=== PATIENT | female | born 1975 | race Caucasian/White ===

== ENCOUNTER → 2017-09-21 09:44 | Outpatient (POV) | payer MEDICAID, SELFPAY ==
[2017-09-21 09:55] VITALS: BP 151/93; PULSE 71; RESP 18; O2SAT 99
--- NOTE | 2017-09-21 10:43 | HMH.PMCON ---
Assessment and Plan (1) Complex regional pain syndrome Current visit: Yes Status: Chronic Qualifiers: Complex regional pain syndrome type: type I Complex regional pain syndrome affected site: other site Qualified Code(s): G90.59 - Complex regional pain syndrome I of other specified site Category: Medical (2) Nerve pain Current visit: Yes Status: Chronic Category: Medical Code(s): M79.2 - Neuralgia and neuritis, unspecified - Assessment and plan all Dx Assessment and Plan for all problems:: We will see the patient back in a few weeks. We will start her on Lyrica 75 mg daily. We will see if this is beneficial for her. If it is not we may have to move forward with some nerve blocks. Patient was educated on the potential side effects of this medication. Patient's been instructed to call the office if she has any issues. This note was dictated using voice recognition software and may contain errors or omissions HPI - Data of Consult Consult date: 09/21/17 Requesting Physician: Mariana Stallworth APRN Primary Care Provider: Hien Mace APRN Family Provider: Dr. Juárez - Consult Narrative Reason for consult: Left breast pain History of present illness: Ms. Francisco is a 41 year old female since today for consultation in regards to her left breast pain. Patient had continual cysts removed from her breast a year ago. Patient has burning and tingling in this area. Patient has had not had any relief from this since then. Patient states aching constant burning pain. She rates the pain a 5 out of 10. Patient's tried and failed amitriptyline, gabapentin, narcotics, Cymbalta. Patient has not tried Lyrica. I do believe that this may be beneficial for her. Patient may also benefit from nerve blocks in the future. CC: Mariana Stallworth APRN [facility] History I have reviewed the patient's past medical history: Yes Laterality Cases: Left: Breast Biopsy - *Social History Smoking Status: Current every day smoker Tobacco Type: cigarettes # Packs/Day (cigarettes): 1 Alcohol Intake: never Occupational Status: employed, other Housing: house - Psychiatric History Expresses thoughts of harming self/others: None Suicide Plan Description: No Plan *Family Hx:: Unable to obtain Review of Systems - Review of Systems ROS General: no recent weight change, no fever, no sleep disturbances Respiratory: no cough, no shortness of air, no recurring pulmonary infections Cardiovascular/Peripheral Vascular: No chest pain, No palpitations, no edema, no shortness of breath. Gastrointestinal: no incontinence, normal bowel movements reported Genitourinary: no incontinence Musculoskeletal: Left breast pain Psychiatric: normal mood/ affect Neurological: [denies weakness in extremities], [denies balance issues] Meds Allergies Allergy/AdvReac Type Severity Reaction Status Date / Time MORPHINE Allergy Mild NA-NAUSEA/V Uncoded 02/10/17 14:30 OMITING Objective Vital signs: Pulse Resp BP Pulse Ox 71 18 151/93 99 09/21/17 09:55 09/21/17 09:55 09/21/17 09:55 09/21/17 09:55 Narrative: Physical Exam General: Alert and oriented x3, no acute distress, pleasant and cooperative, [on room air] Lungs: Resps E/U, Symmetrical chest expansion, Eyes: PERRL Musculoskeletal: deep tendon reflexes normal, strength in upper and lower extremities [5/5], normal gait noted Neurological: speech clear, 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
--- NOTE | 2017-09-21 10:46 | P.CONS_ITS ---
Assessment and Plan (1) Complex regional pain syndrome Current visit: Yes Status: Chronic Qualifiers: Complex regional pain syndrome type: type I Complex regional pain syndrome affected site: other site Qualified Code(s): G90.59 - Complex regional pain syndrome I of other specified site Category: Medical (2) Nerve pain Current visit: Yes Status: Chronic Category: Medical Code(s): M79.2 - Neuralgia and neuritis, unspecified - Assessment and plan all Dx Assessment and Plan for all problems:: We will see the patient back in a few weeks. We will start her on Lyrica 75 mg daily. We will see if this is beneficial for her. If it is not we may have to move forward with some nerve blocks. Patient was educated on the potential side effects of this medication. Patient's been instructed to call the office if she has any issues. This note was dictated using voice recognition software and may contain errors or omissions HPI - Data of Consult Consult date: 09/21/17 Requesting Physician: Mariana Stallworth APRN Primary Care Provider: Hien Mace APRN Family Provider: Dr. Juárez - Consult Narrative Reason for consult: Left breast pain History of present illness: Ms. Francisco is a 41 year old female since today for consultation in regards to her left breast pain. Patient had continual cysts removed from her breast a year ago. Patient has burning and tingling in this area. Patient has had not had any relief from this since then. Patient states aching constant burning pain. She rates the pain a 5 out of 10. Patient's tried and failed amitriptyline, gabapentin, narcotics, Cymbalta. Patient has not tried Lyrica. I do believe that this may be beneficial for her. Patient may also benefit from nerve blocks in the future. CC: Mariana Stallworth APRN [facility] History I have reviewed the patient's past medical history: Yes Laterality Cases: Left: Breast Biopsy - *Social History Smoking Status: Current every day smoker Tobacco Type: cigarettes # Packs/Day (cigarettes): 1 Alcohol Intake: never Occupational Status: employed, other Housing: house - Psychiatric History Expresses thoughts of harming self/others: None Suicide Plan Description: No Plan *Family Hx:: Unable to obtain Review of Systems - Review of Systems ROS General: no recent weight change, no fever, no sleep disturbances Respiratory: no cough, no shortness of air, no recurring pulmonary infections Cardiovascular/Peripheral Vascular: No chest pain, No palpitations, no edema, no shortness of breath. Gastrointestinal: no incontinence, normal bowel movements reported Genitourinary: no incontinence Musculoskeletal: Left breast pain Psychiatric: normal mood/ affect Neurological: [denies weakness in extremities], [denies balance issues] Meds Allergies Allergy/AdvReac Type Severity Reaction Status Date / Time MORPHINE Allergy Mild NA-NAUSEA/V Uncoded 02/10/17 14:30 OMITING Objective Vital signs: Pulse Resp BP Pulse Ox 71 18 151/93 99 09/21/17 09:55 09/21/17 09:55 09/21/17 09:55 09/21/17 09:55 Narrative: Physical Exam General: Alert and oriented x3, no acute distress, pleasant and cooperative, [ on room air] Lungs: Resps E/U, Symmetrical chest expansion, Eyes: PERRL Musculoskeletal: deep tendon reflexes normal, strength in upper and lo
== END ==
PROVIDERS: PCP Nurse Practitioner Family; Visit Provider Clinical Nurse Specialist Family Health
DX: G90.59 Complex regional pain syndrome I of other specified site (principal); M79.2 Neuralgia and neuritis, unspecified
CPT/HCPCS: 99202

== ENCOUNTER → 2017-10-12 08:51 | Outpatient (POV) | payer MEDICAID, SELFPAY ==
[2017-10-12 09:13] VITALS: BP 146/87; PULSE 63; RESP 18; O2SAT 98; BMI 37.5
--- NOTE | 2017-10-12 10:05 | HMH.PAINSOAP ---
[facility] Pain Management SOAP Note Subjective:: Patient is a pleasant 41-year-old white female who presents today for follow-up. Patient left breast pain status post cyst removal. Patient still has constant burning and tingling. Patient tried Lyrica and had side effects that include swelling coughing and gaining weight. Patient and I talked about peripheral nerve blocks we may move forward with this. Patient has not tried any compounding gel. Patient rates her pain a 4 out of 10 today. She states it is constant. ROS General: no recent weight change, no fever, no sleep disturbances Respiratory: no cough, no shortness of air, no recurring pulmonary infections Cardiovascular/Peripheral Vascular: No chest pain, No palpitations, no edema, no shortness of breath. 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 If this does not work we will discuss potentially doing a compounding cream. This note was dictated using voice recognition software and may contain errors or omissions
--- NOTE | 2017-10-12 10:08 | P.CONS_ITS ---
[facility] Pain Management SOAP Note Subjective:: Patient is a pleasant 41-year-old white female who presents today for follow- up. Patient left breast pain status post cyst removal. Patient still has constant burning and tingling. Patient tried Lyrica and had side effects that include swelling coughing and gaining weight. Patient and I talked about peripheral nerve blocks we may move forward with this. Patient has not tried any compounding gel. Patient rates her pain a 4 out of 10 today. She states it is constant. ROS General: no recent weight change, no fever, no sleep disturbances Respiratory: no cough, no shortness of air, no recurring pulmonary infections Cardiovascular/Peripheral Vascular: No chest pain, No palpitations, no edema, no shortness of breath. 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 If this does not work we will discuss potentially doing a compounding cream. This note was dictated using voice recognition software and may contain errors or omissions
== END ==
PROVIDERS: Visit Provider Clinical Nurse Specialist Family Health
DX: N64.4 Mastodynia (principal)
CPT/HCPCS: 99213

== ENCOUNTER → 2017-11-16 10:30 | Outpatient (CLI) | payer MEDICAID, SELFPAY ==
[2017-11-16 11:13] LABS: Basophils # 0.1 K/mm3 (0-0.2); Basophils % 0.6 % (0.1-2.0); Eosinophils # 0.2 K/mm3 (0.0-0.4); Hematocrit 41.2 % (37.0-47.0); Lymphocytes # 2.4 K/mm3 (0.7-4.5); Lymphocytes % 24.4 K/mm3 (10-50); Mean Corpuscular HGB Conc 31.6 g/dL (31.8-35.4); Mean Corpuscular Hemoglobin 27.1 pg (27.0-31.2); Mean Corpuscular Volume 85.7 fl (81-99); Mean Platelet Volume 8.4 fl (7.4-10.4); Monocytes # 0.5 K/mm3 (0.1-1.0); Monocytes % 4.6 % (1.7-9.3); Neutrophils # 6.9 K/mm3 (1.8-7.8); Neutrophils % 68.5 % (37.0-80.0); Platelet Count 310 K/mm3 (142-424); Red Blood Count 4.81 M/mm3 (4.20-5.40); Red Cell Distribution Width 15.1 % (11.5-17.5)
[2017-11-16 13:20] LABS: Thyroid Stimulating Hormone 2.13 uIU/ml (0.358-3.740)
== END ==
PROVIDERS: PCP Nurse Practitioner Family; Visit Provider Obstetrics & Gynecology
DX: N93.8 Other specified abnormal uterine and vaginal bleeding (principal)
CPT/HCPCS: 36415; 84443; 85025

== ENCOUNTER → 2017-11-23 14:43 | Outpatient (CLI) | payer MEDICAID, SELFPAY ==
--- NOTE | 2017-11-23 14:45 | US_ITS ---
US transvaginal HISTORY: Dysfunctional uterine bleeding, heavy periods, pelvic pain ITS.REASON: DUB ORDERING PHYSICIAN: Rashard Thompson MD PATIENT AGE: 41 years Comparison: None Last menstrual period: 11/04/2017 FINDINGS: The uterus is 11.5 x 5 x 6.4 cm with a combined endometrial thickness of 17 mm. There is heterogeneous echogenicity of the endometrium with ill-defined decreased echogenicity anteriorly and decreased echogenicity posteriorly. The left ovary is 3.2 x 2.4 cm. There is a 2.3 cm cyst. The right ovary is 2.9 x 1.7 cm. No cul-de-sac fluid evident. IMPRESSION: Enlarged uterus with heterogeneously thickened endometrium at 17 mm. Differential diagnosis would include endometrial hyperplasia, polyps, or endometrial carcinoma
== END ==
PROVIDERS: PCP Family Medicine; Visit Provider Obstetrics & Gynecology
DX: N93.8 Other specified abnormal uterine and vaginal bleeding (principal)
CPT/HCPCS: 76830

== ENCOUNTER → 2017-12-07 15:08 | Outpatient (POV) | payer MEDICAID, SELFPAY ==
[2017-12-07 15:52] VITALS: BP 120/81; PULSE 74; RESP 18; O2SAT 98; BMI 40.2
--- NOTE | 2017-12-08 08:15 | HMH.PAINSOAP ---
[facility] Pain Management SOAP Note Subjective:: Date of service 12/07/2017 Patient is a pleasant 42-year-old white female who presents today for after injections to help with pain secondary to cyst removal. Patient has tried and failed Lyrica along with gabapentin. Patient rates her pain a 7 out of 10 today. Patient had these cysts removed from her left breast. Patient has swelling, color changes in this area. Patient states that it is constant with burning and tingling. Patient is finding it difficult to work. Patient did not have any relief from the injections. Patient and I had a long discussion about neuro stimulation. ROS General: no recent weight change, no fever, no sleep disturbances Respiratory: no cough, no shortness of air, no recurring pulmonary infections Cardiovascular/Peripheral Vascular: No chest pain, No palpitations, no edema, no shortness of breath. 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 I believe that this would be beneficial for her and give her long-term functionality. Patient's tried and failed medications, anti-inflammatories. Patient is remaining active. We will see her psychological evaluation and I will follow-up with her after this. This note was dictated using voice recognition software and may contain errors or omissions
--- NOTE | 2017-12-08 08:19 | P.CONS_ITS ---
[facility] Pain Management SOAP Note Subjective:: Date of service 12/07/2017 Patient is a pleasant 42-year-old white female who presents today for after injections to help with pain secondary to cyst removal. Patient has tried and failed Lyrica along with gabapentin. Patient rates her pain a 7 out of 10 today. Patient had these cysts removed from her left breast. Patient has swelling, color changes in this area. Patient states that it is constant with burning and tingling. Patient is finding it difficult to work. Patient did not have any relief from the injections. Patient and I had a long discussion about neuro stimulation. ROS General: no recent weight change, no fever, no sleep disturbances Respiratory: no cough, no shortness of air, no recurring pulmonary infections Cardiovascular/Peripheral Vascular: No chest pain, No palpitations, no edema, no shortness of breath. 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 I believe that this would be beneficial for her and give her long-term functionality. Patient's tried and failed medications, anti-inflammatories. Patient is remaining active. We will see her psychological evaluation and I will follow-up with her after this. This note was dictated using voice recognition software and may contain errors or omissions
== END ==
PROVIDERS: PCP Family Medicine; Visit Provider Clinical Nurse Specialist Family Health
DX: N64.4 Mastodynia (principal); G90.50 Complex regional pain syndrome I, unspecified
CPT/HCPCS: 99213

== ENCOUNTER → 2018-01-01 14:19 | Outpatient (CLI) | payer MEDICAID, SELFPAY ==
--- NOTE | 2018-01-01 14:21 | US_ITS ---
US transvaginal HISTORY: Follow-up uterine and endometrial enlargement ITS.REASON: pelvic pain ORDERING PHYSICIAN: Rashard Thompson MD PATIENT AGE: 42 years Comparison: 11/23/2017 FINDINGS: The uterus is 11 x 5.5 x 6.2 cm. The endometrium remains thickened at 19 mm. There is a suspected fibroid along the posterior aspect of the uterus at 19 mm. There is some asymmetric increased echogenicity along the right aspect of the uterus raising the suspicion of a polyp measuring 1 cm. The left ovary is 3.6 x 2.6 cm. The right ovary is 3.2 x 2.3 cm. No adnexal mass. No cul-de-sac fluid evident. IMPRESSION: 1. 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 Endometrium measures 19 mm in thickness previously measuring 17 mm in thickness. Endometrial hyperplasia, endometrial carcinoma, or endometrial polyp is considered. 2. Possible uterine fibroid. 3. No adnexal mass or cul-de-sac fluid
== END ==
PROVIDERS: PCP Family Medicine; Visit Provider Obstetrics & Gynecology
DX: R10.2 Pelvic and perineal pain (principal)
CPT/HCPCS: 76830

== ENCOUNTER → 2018-01-29 10:22 | Outpatient (CLI) | payer MEDICAID, SELFPAY ==
[2018-01-29 10:54] LABS: Urine Pregnancy, HCG Qual. Negative (Negative)
[2018-01-29 11:00] LABS: Basophils # 0.1 K/mm3 (0-0.2); Basophils % 0.5 % (0.1-2.0); Eosinophils # 0.3 K/mm3 (0.0-0.4); Eosinophils % 2.1 % (0.1-12.0); Hematocrit 42.3 % (37.0-47.0); Hemoglobin 13.3 g/dL (12.2-16.2); Lymphocytes # 2.7 K/mm3 (0.7-4.5); Lymphocytes % 18.1 % (10-50); Mean Corpuscular HGB Conc 31.6 g/dL (31.8-35.4); Mean Corpuscular Hemoglobin 27.2 pg (27.0-31.2); Mean Corpuscular Volume 86.1 fl (81-99); Mean Platelet Volume 8.5 fl (7.4-10.4); Monocytes # 0.7 K/mm3 (0.1-1.0); Monocytes % 4.7 % (1.7-9.3); Neutrophils # 11.1 K/mm3 (1.8-7.8); Neutrophils % 74.5 % (37.0-80.0); Platelet Count 258 K/mm3 (142-424); Red Blood Count 4.91 M/mm3 (4.20-5.40); White Blood Count 14.8 K/mm3 (4.8-10.8)
[2018-01-29 12:07] LABS: Alanine Aminotransferase 29 U/L (12-78); Albumin Level 3.6 gm/dL (3.4-5.0); Albumin/Globulin Ratio 1.1 (1.1-1.8); Alkaline Phosphatase 97 U/L (46-116); Anion Gap 13.1 mEq/L (5-15); Aspartate Amino Transferase 11 U/L (15-37); Bilirubin,Total 0.4 mg/dL (0.2-1.0); Blood Urea Nitrogen 9 mg/dL (7-18); Calcium 8.9 mg/dL (8.5-10.1); Carbon Dioxide 27 mmol/L (21.0-32.0); Chloride 102 mmol/L (98-107); Creatinine,Serum 0.71 mg/dL (0.55-1.02); Estimated Glomerular Filt Rate 90 ml/min (>60); GFR (African American) 109 ML/MIN (>60); Globulin 3.4 gm/dl (1.3-3.2); Glucose 88 mg/dL (74-106); Potassium 4.1 mmoL/L (3.5-5.1); Sodium 138 mmol/L (136-145)
== END ==
PROVIDERS: PCP Family Medicine; Visit Provider Obstetrics & Gynecology
DX: Z01.818 Encounter for other preprocedural examination (principal); N93.8 Other specified abnormal uterine and vaginal bleeding
CPT/HCPCS: 36415; 80053; 81025; 85025

== ENCOUNTER 2020-03-21 14:20 | Emergency (ER) | payer SELFPAY ==
[2020-03-21 14:20] VITALS: BP 142/87; PULSE 96; RESP 20; TEMP 37.2; O2SAT 97; BMI 41.9
--- NOTE | 2020-03-21 14:41 | HMH.EDUTC ---
[facility] [place] Clinical Impression: Dental abscess Disposition: Home, Self-Care Condition on Discharge: Good Instructions: Tooth Abscess, Amoxicillin and Clavulanic Acid Additional Instructions: Take medication as prescribed FOllow up with Dentist as advised for further treatment and evaluation Over the counter Motrin for pain Return if needed Straight to ER if any life threatening symptoms Prescriptions: Amoxicillin/Potassium Clav [Augmentin 875-125 Tablet] 1 tab PO Q12H 10 Days #20 tab Transmission Status: Pending to [facility] Referrals: Jose Juárez MD [Primary Care Provider] - As needed Alfie Cho [Referring] - Time of Disposition: 14:46 Medical Decision Making - Jules Inquiry Pt receiving controlled substance: No Jules was queried for this patient: No Vital Signs: 03/21/20 14:20 Temperature 98.9 F Temperature Source Oral Pulse Rate [Left Radial] 96 H Respiratory Rate 20 Blood Pressure [Right Arm] 142/87 H Blood Pressure Mean [Right Arm] 105 Blood Pressure Source [Right Arm] Automatic Cuff Blood Pressure Position [Right Arm] Sitting 02 Sat by Pulse Oximetry 97 Oxygen Delivery Method Room Air [facility] [place] - General Stated complaint: abscess tooth Time Seen by Provider: 03/21/20 14:41 Mode of Arrival: Ambulatory Source of Information: Patient Limitations: No Limitations Description of Symptoms (Recalled from Triage Doc. by RN): c/o left sided swollen face with tooth painful since yesterday HEENT Symptoms (Recalled from RN notes): Yes Resp Symptoms (Recalled from RN notes): No Skin Symptoms (Recalled from RN notes): No MS Symptoms (Recalled from RN notes): No Functional Status (Recalled from RN notes): wnl - History of Present Illness Provider Complaint: Patient state that she has an abscessed tooth State that she has been having pain and swelling in her left jaw area that has continued to get worse States that first she thought it may have been her sinuses but she she has a broken tooth back there on her left upper jaw and thinks it may be coming from there too - Related Data Previous Rx's Medication Instructions Recorded doxycycline hyclate 100 mg tablet 100 mg PO BID 10 Days #20 tab 03/04/18 Amoxicillin/Potassium Clav 1 tab PO Q12H 10 Days #20 tab 03/21/20 [Augmentin 875-125 Tablet] Allergies Allergy/AdvReac Type Severity Reaction Status Date / Time pregabalin [From Lyrica] AdvReac Verified 11/18/18 07:42 MORPHINE Allergy Mild NA-NAUSEA/V Uncoded 11/18/18 07:42 OMITING - Worker's Comp Is this a Worker's Comp case?: No [facility] History - Hepatitis A Screen Drug use history?: No High risk sexual behaviors?: No History of sexually transmitted infection?: No Currently employed?: No Childcare worker?: No Do you have indoor plumbing?: Yes Do you have electricity?: Yes Attestation statement:: This patient has been screened for Hepatitis A risk factors. I have reviewed the patient's past medical history: Yes Medical History: Denies:: Cancer, Diabetes Mellitus Type 1, Diabetes Mellitus Type 2, Internal Pacemaker, MRSA, Seizures Other Medical History: Denies: Blood Transfusion Reaction Comment: NERVE PAIN Laterality Cases: Left: Breast Biopsy Other Surgeries: Yes: , Other. No: Pacemaker Amputation: No Fractures: No Comment: 1996-D&E. 2000- Primary . 2016- Lumpectomy. 2018- Dx. HSC, FX. D&C - Social History Smoking Status: Current every day smoker Tobacco Type: cigarettes # Packs/Day (cigarettes): 1 Alcohol Intake: never Alcohol Intake Frequency:: other Substance Use Type: denies use Occupational Status: employed, other Housing: house Household Members: significant other Family Hx:: No significant family history Comment: 1995- , female, 6lb. 5 oz. 1996- sab. 1997- , female, 6lb. 8 oz. 2000- Primary , female, 6lb. 15 oz. ROS Obtained: Yes All systems reviewed & no additional complaints, Yes System
[2020-03-21 15:06] VITALS: BP 142/87; PULSE 96; RESP 20; TEMP 37.2; O2SAT 97
== END 2020-03-21 15:07 | disposition home or self-care (01) ==
PROVIDERS: Emergency Provider Nurse Practitioner; PCP Family Medicine
DX: K04.7 Periapical abscess without sinus (principal); F17.210 Nicotine dependence, cigarettes, uncomplicated; K02.9 Dental caries, unspecified
CPT/HCPCS: 99202; G0463

== ENCOUNTER → 2020-08-01 13:27 | Outpatient (CLI) | payer OTHER, SELFPAY ==
[2020-08-01 15:39] LABS: Basophils # 0.1 K/mm3 (0-0.2); Eosinophils # 0.2 K/mm3 (0.0-0.4); Eosinophils % 2.7 % (0.1-12.0); Hemoglobin 14.6 g/dL (12.2-16.2); Lymphocytes # 2.1 K/mm3 (0.7-4.5); Lymphocytes % 27.7 % (10-50); Mean Corpuscular HGB Conc 32.5 g/dL (31.8-35.4); Mean Corpuscular Hemoglobin 27.7 pg (27.0-31.2); Mean Corpuscular Volume 85.3 fl (81-99); Mean Platelet Volume 10.3 fl (7.4-10.4); Monocytes # 0.4 K/mm3 (0.1-1.0); Monocytes % 4.7 % (1.7-9.3); Neutrophils # 4.8 K/mm3 (1.8-7.8); Neutrophils % 63.8 % (37.0-80.0); Platelet Count 257 K/mm3 (142-424); Red Blood Count 5.27 M/mm3 (4.20-5.40); Red Cell Distribution Width 15.1 % (11.5-17.5); White Blood Count 7.4 K/mm3 (4.8-10.8)
[2020-08-01 15:45] LABS: Alanine Aminotransferase 21 U/L (12-78); Albumin Level 4.4 g/dl (3.5-5.0); Albumin/Globulin Ratio 1.5 (1.1-1.8); Alkaline Phosphatase 95 U/L (38-126); Anion Gap 12.7 mEq/L (5-15); Aspartate Amino Transferase 26 U/L (14-36); Bilirubin,Total 0.7 mg/dl (0.2-1.3); Blood Urea Nitrogen 14 mg/dl (7-17); Calcium 9.4 mg/dl (8.4-10.2); Carbon Dioxide 26 mmol/L (22.0-30.0); Chloride 106 mmol/L (98-107); Chol/HDL Ratio 4.4 (1-3.5); Cholesterol 198 mg/dl (140-200); Estimated Glomerular Filt Rate 91 ml/min (>60); GFR (African American) 110 ML/MIN (>60); Globulin 2.9 g/dL (1.3-3.2); Glucose 85 mg/dl (74-100); HDL Cholesterol 45 mg/dl (40-60); Potassium 4.7 mmoL/L (3.5-5.1); Sodium 140 mmol/L (136-145); Total Protein,Serum 7.3 g/dl (6.3-8.2); Triglycerides 115 mg/dl (30-150); VLDL Cholesterol 23 mg/dL (0-40)
[2020-08-01 15:56] LABS: Direct LDL Cholesterol 124.83 mg/dL (100-129)
[2020-08-01 16:02] LABS: 25-OH Vitamin D, Total 30.7 ng/mL (30-100); T4 (Thyroxine) 7.6 ug/dl (5.53-11.0)
[2020-08-01 16:16] LABS: Thyroid Stimulating Hormone 1.09 uIU/mL (0.465-4.68)
== END ==
PROVIDERS: Visit Provider Nurse Practitioner Family
DX: Z00.00 Encounter for general adult medical examination without abnormal findings (principal); R53.82 Chronic fatigue, unspecified; Z72.0 Tobacco use; Z68.41 Body mass index [BMI] 40.0-44.9, adult
CPT/HCPCS: 80053; 80061; 82306; 84436; 84443; 85025

== ENCOUNTER → 2020-08-28 13:23 | Outpatient (CLI) | payer OTHER, SELFPAY ==
--- NOTE | 2020-08-28 13:23 | MM_ITS ---
PROCEDURE INFORMATION: Exam: Screening 3D Mammography Exam date and time: 08/28/2020 1:23 PM Age: 44 years old Clinical indication: screening mammogram TECHNIQUE: Imaging protocol: Screening tomosynthesis and 2D mammography including computer-aided detection (CAD) when performed. COMPARISON: MAMMO DIAGNOSTIC DIGITAL TOMOSYNTHESIS BILATERAL W CAD 10/23/2016 9:21 AM FINDINGS: MAMMOGRAPHY: Breast composition: There are scattered areas of fibroglandular density. Mass: None. Architectural distortion: No new or suspicious architectural distortion. Calcifications: Stable benign-appearing calcifications are present. No new or suspicious cluster of microcalcifications have developed. Asymmetric density: No new or suspicious asymmetric density is present Skin thickening: None. Axillary adenopathy: None. IMPRESSION: No mammographic evidence of malignancy. Recommend annual screening mammography unless otherwise clinically indicated. ASSESSMENT: BI-RADS category 2: Benign
--- NOTE | 2020-08-28 13:23 | US_ITS ---
PROCEDURE: US TRANSVAGINAL CLINICAL INDICATION: PID, discharge COMPARISON: US TRANVAG US transvaginal from 01/01/2018 FINDINGS: The uterus is bulky is at 11 x 5 x 6 cm. Combined endometrial thickness is 10 mm. There is a fibroid along the posterior aspect of the fundus of the uterus at 2.4 x 1.6 cm and an additional fibroid at 1.1 cm along the uterine fundus region centrally. The ovaries are unremarkable. No cul-de-sac fluid evident. IMPRESSION: Bulky uterus with at least 2 fibroids and borderline endometrial thickening. Dictated by: Varinder Cronin MD 08/29/2020 11:35 Varinder Cronin MD in OV 08/29/2020 11:35
== END ==
PROVIDERS: PCP Nurse Practitioner Family; Visit Provider Nurse Practitioner Family
DX: Z12.31 Encounter for screening mammogram for malignant neoplasm of breast (principal); N73.9 Female pelvic inflammatory disease, unspecified; N89.8 Other specified noninflammatory disorders of vagina
CPT/HCPCS: 76830; 77063; 77067

== ENCOUNTER → 2020-10-10 09:49 | Outpatient (CLI) | payer OTHER, SELFPAY ==
--- NOTE | 2020-10-10 10:24 | ECG_ITS ---
APPROVED REPORT Exam: Resting ECG HR:77 bpm ECG Measurements Heart Rate 77 AXES WV 144 P 45 QRSd 84 QRS 5 QT 366 T 30 QTc 414 Conclusion Normal sinus rhythm Late R wave progression Abnormal ECG Electronically signed by : Jose Fishman MD 10/10/2020 11:43:57
[2020-10-10 10:49] LABS: Chloride 106 mmol/L (98-107); Potassium 4.1 mmoL/L (3.5-5.1); Sodium 141 mmol/L (136-145)
[2020-10-10 10:52] LABS: Anion Gap 11.1 mEq/L (5-15); Blood Urea Nitrogen 9 mg/dl (7-17); Carbon Dioxide 28 mmol/L (22.0-30.0); Estimated Glomerular Filt Rate 91 ml/min (>60); GFR (African American) 110 ML/MIN (>60); Glucose 120 mg/dl (74-100)
[2020-10-10 10:53] LABS: Calcium 9.3 mg/dl (8.4-10.2)
[2020-10-10 11:11] LABS: HCG,Quantitative < 2 mIU/ml (0-5.42)
[2020-10-10 11:26] LABS: Basophils # 0.1 K/mm3 (0-0.2); Basophils % 0.9 % (0.1-2.0); Eosinophils # 0.2 K/mm3 (0.0-0.4); Eosinophils % 1.8 % (0.1-12.0); Hematocrit 42.8 % (37.0-47.0); Hemoglobin 14.1 g/dL (12.2-16.2); Lymphocytes # 2.1 K/mm3 (0.7-4.5); Mean Corpuscular Hemoglobin 27.4 pg (27.0-31.2); Mean Corpuscular Volume 83.2 fl (81-99); Mean Platelet Volume 9.8 fl (7.4-10.4); Monocytes # 0.6 K/mm3 (0.1-1.0); Monocytes % 6.4 % (1.7-9.3); Neutrophils # 6.1 K/mm3 (1.8-7.8); Platelet Count 257 K/mm3 (142-424); Red Blood Count 5.14 M/mm3 (4.20-5.40); Red Cell Distribution Width 14.9 % (11.5-17.5)
== END ==
PROVIDERS: Visit Provider Nurse Practitioner Obstetrics & Gynecology
DX: Z01.812 Encounter for preprocedural laboratory examination (principal); Z11.52 Encounter for screening for COVID-19; D25.9 Leiomyoma of uterus, unspecified; N85.2 Hypertrophy of uterus; N92.0 Excessive and frequent menstruation with regular cycle; R10.2 Pelvic and perineal pain
CPT/HCPCS: 36415; 80048; 84702; 85025; 93005; U0003

== ENCOUNTER 2020-10-12 12:28 | Observation (INO) | payer OTHER, SELFPAY ==
[2020-10-09 13:38] VITALS: BMI 43.4
[2020-10-12] VITALS (20 sets, daily range): BP systolic 114–179; BP diastolic 72–108; PULSE 57–100; RESP 16–20; TEMP 36.5–37.4; O2SAT 92–98
--- NOTE | 2020-10-12 07:40 | P.PN_ITS ---
[facility] Anesthesia Checklist - Patient Identification Patient Identification: Arm Band - Structural Data Admitted From: Home Planned Operative Procedure/s: LAVH, Bilateral Salpingectomy Consent for Planned Operative Procedure(s) Verified: Yes Verified Documents: Surgical Consent, History and Physical - NPO Status Verified Time NPO: 00:00 - Additional verifications Anesthesia Reactions: No Hx Blood Transfusions: No Blood Transfusion Reaction: No - Airway Assessment C-Spine Mobility Assessed: Yes (mp2) TMJ Mobility Assessed: Yes Dentition: Good Dentition - Neurological Assessment Level of Consciousness: Awake, Alert - Anesthesia Plan Anesthesia Risk discussed: Yes Anesthesia Plan: Verified ASA Class: III Anesthesia Type: General [facility] History I have reviewed the patient's past medical history: Yes Medical History: Reports:: Asthma Denies:: Cancer, Diabetes Mellitus Type 1, Diabetes Mellitus Type 2, Internal Pacemaker, MRSA, Seizures *Have you ever received a pneumonia vaccine?: No *Have you received a flu vaccine this season?: No Other Medical History: Denies: Blood Transfusion Reaction Anesthesia experience/problems:: nac Laterality Cases: Left: Breast Biopsy Other Surgeries: Yes: , Dilation and Curettage, Other. No: Pacemaker Amputation: No Fractures: No - *Social History Last grade of school completed: High school graduate Smoking Status: Current every day smoker Tobacco Type: cigarettes # Packs/Day (cigarettes): 1 Alcohol Intake: current Alcohol Intake Frequency:: holidays/special occasions only Substance Use Type: denies use *Occupational Status:: employed Housing: house Household Members: other *Travel in the last 8 weeks: None Family Hx:: No significant family history
--- NOTE | 2020-10-12 08:58 | HMH.HP ---
*Admission Date: 10/12/20 *Chief complaint: Menorrhagia, dysmenorrhea, fibroid uterus *History of present illness: She is a 44-year-old 4 para 4 lady who complains of severe pain with her periods as well as heavy periods. Ultrasound showed that she had a bulky uterus with 2 small fibroids. After having discussed the risk and benefit she elected to have a laparoscopically assisted vaginal hysterectomy and bilateral salpingectomy. [facility] History I have reviewed the patient's past medical history: Yes Medical History: Reports:: Asthma Denies:: Cancer, Diabetes Mellitus Type 1, Diabetes Mellitus Type 2, Internal Pacemaker, MRSA, Seizures *Have you ever received a pneumonia vaccine?: No *Have you received a flu vaccine this season?: No Other Medical History: Denies: Blood Transfusion Reaction Anesthesia experience/problems:: nac Laterality Cases: Left: Breast Biopsy Other Surgeries: Yes: , Dilation and Curettage, Other. No: Pacemaker Amputation: No Fractures: No - *Social History Last grade of school completed: High school graduate Smoking Status: Current every day smoker Tobacco Type: cigarettes # Packs/Day (cigarettes): 1 Alcohol Intake: current Alcohol Intake Frequency:: holidays/special occasions only Substance Use Type: denies use *Occupational Status:: employed Housing: house Household Members: other *Travel in the last 8 weeks: None Family Hx:: No significant family history Review of Systems - Review of Systems Review of systems:: pertinent systems reviewed and negative unless documented below Meds Home Medications Medication Instructions Recorded Confirmed Type ketorolac 10 mg tablet 10 mg PO Q6H PRN 5 Days #20 tab 08/28/20 10/12/20 Rx albuterol sulfate 90 mcg/actuation 2 puff INHALATION BID PRN #8.5 g 09/12/20 10/12/20 Rx aerosol inhaler Allergies Allergy/AdvReac Type Severity Reaction Status Date / Time morphine Allergy Mild Nausea/Vomi Verified 10/09/20 13:21 ting pregabalin [From Lyrica] AdvReac Verified 10/09/20 13:21 Exam Vital signs and Labs for Last 24 Hours: Temp Pulse Resp BP Pulse Ox 97.7 F 88 20 153/97 H 96 10/12/20 07:15 10/12/20 07:15 10/12/20 07:15 10/12/20 07:15 10/12/20 07:15 I & O for Last 24 hours: Intake & Output 10/09/20 10/10/20 10/11/20 10/12/20 11:59 11:59 11:59 11:59 Weight 261 lb - Constitutional no acute distress - *Routine HEENT Exam Head: Present: normocephalic Eye: Present: EOMI, PERRL ENT: Present: mucous membranes moist - *Routine Neck Exam Present: supple, full ROM - *Routine Respiratory Exam Absent: accessory muscle use (good air entry bilaterally), wheezes, crackles - *Routine Cardiovascular Exam Present: RRR. Absent: murmur - *Routine Abdominal Exam Present: soft, normoactive bowel sounds. Absent: tenderness, rebound, guarding, mass - *Routine Rectal Exam Rectal:: deferred - *Routine Genitalia Exam Genitalia:: deferred - *Routine Extremities Exam Present: full ROM. Absent: cyanosis, edema, calf tenderness - *Routine Skin Exam Present: intact (good color) - *Routine Neurological Exam Present: alert, oriented X3 - Routine Psychiatric Exam Present: normal affect - Detailed Rectal Exam Patient deferred: visual exam, digital exam - Detailed Exam Patient deferred: external exam, groin exam, perineal exam Assessment and Plan (1) Menorrhagia Status: Acute Category: Medical Code(s): N92.0 - Excessive and frequent menstruation with regular cycle (2) Dysmenorrhea Status: Acute Category: Medical Code(s): N94.6 - Dysmenorrhea, unspecified (3) Intramural uterine fibroid Status: Acute Category: Medical Code(s): D25.1 - Intramural leiomyoma of uterus (4) Tobacco use Status: Chronic Category: Social Hx Code(s): Z72.0 - Tobacco use - Assessment and plan all Dx Assessment and Plan for all problems:: She has a bulky uterus with a couple of sma
--- NOTE | 2020-10-12 11:22 | HMH.OPNOTE ---
Date of procedure: 10/12/20 Pre-op Diagnosis:: Menorrhagia, dysmenorrhea, uterine hypertrophy, fibroid uterus Post-op Diagnosis:: Menorrhagia, dysmenorrhea, uterine hypertrophy, fibroid uterus, pelvic peritoneal adhesions Procedure performed:: Laparoscopically assisted vaginal hysterectomy, bilateral salpingectomy, lysis of adhesions Surgeon:: Hollis Gutierrez MD Director Of Casework(s):: Aleida Hyatt YARD ENGINEER:: Other (Ady Ling) Anesthesia: GETA Estimated blood loss (mL): 350 Clinical Note:: She is a 44-year-old 4 para 4 lady who complains of very heavy painful periods. She has had a previous tubal ligation. Ultrasound showed that she had uterine hypertrophy as well as 2 fibroids within the uterus. As result of this she was offered laparoscopically assisted vaginal hysterectomy and bilateral salpingectomy. Operative findings:: She had an anteverted bulky uterus. The ovaries and tubes appeared normal. The tubes had been previously ligated. The left tube was adherent to the epiploica of the sigmoid colon. There were also adhesions of the fat surrounding the sigmoid to the anterior abdominal wall in the left lower quadrant. The upper abdomen appeared normal as well. Operative note:: She was taken to the operating room where general anesthesia was found be adequate. She was prepped and draped in normal sterile fashion in the semilithotomy position. A weighted speculum was placed in the vagina and the anterior lip of the cervix was grasped with a tenaculum. A Sarah uterine manipulator was then placed within the cervical os. The balloon was insufflated. I then changed gloves. I injected 10 cc of 0.5% ropivacaine around the umbilicus and made a small incision within the umbilicus. I inserted a Veress needle into the abdominal cavity. The abdominal cavity was then insufflated with carbon dioxide gas to a pressure of 20 mmHg. I then inserted an 11 mm trocar under direct vision. I injected through and through the pubic hairline, made a small incision here and inserted a 5 mm trocar under direct vision. I identified the inferior epigastric arteries on the left side, went lateral to these and injected through and through. I then made a small incision and inserted an 11 mm trocar under direct vision. A similar 11 mm trocar was placed on the right side. There were extensive adhesions of the sigmoid colon fat to the anterior abdominal wall on the left side and these were taken down with harmonic scalpel. The left tube was adherent to the epiploica of the sigmoid colon and using harmonic scalpel and traction countertraction I was able to free up this tube. The left round ligament was then grasped and cut through with harmonic scalpel. This was followed by opening up the peritoneum anteriorly to the midline. I then grasped the tube on the left side and cut through this. This is followed by cutting through the left utero-ovarian ligament. I used Harmonic scalpel on the coagulation mode. I then took down the posterior aspect of the broad ligament to the level of the uterosacral ligament. I then skeletonized the uterine arteries on the left side and placed hemoclips on these. Using the harmonic scalpel on coagulation mode adjacent to the cervix I then took down these uterine arteries. I then further freed up the bladder anteriorly and laterally on the left side. I then turned my attention to the right side where I grasped the right round ligament. The right tube was adherent to the right pelvic sidewall and using harmonic scalpel I was able to free this up. I then cut through the right round ligament. I then took down the anterior peritoneum to the midline joining up with the other side. I further dissected the bladder off. The posterior aspect of the right broad ligament was then taken down with harmonic scalpel. I skeletonized the uterine arteries on the right side. I applied hemoclips to the uterine arteries and staying adjacent to
--- NOTE | 2020-10-12 11:32 | HMH.ANESI ---
[facility] Anesthesia Record Part I Intake, IV Amount: 1,500 Estimated blood loss (mL): 350 Urine output (mL): 0 Blood Pressure: 179/90 SaO2: 92 Pulse Rate: 90 Respiratory Rate: 16 Temperature: 98 F Patient is:: Drowsy, Stable Stable to PACU at:: 11:30
--- NOTE | 2020-10-12 12:30 | PC.NURSE ---
PT ARRIVED ON UNIT AT THIS TIME. A/OX4. DROWSY, BUT ABLE TO STAY AWAKE. LUNGS CTA AND BOWEL SOUND HYPOACTIVE. 4 LAP SITES NOTED. LAP SITE TO RIGHT OF ABDOMEN HAVING SCANT SERANG. DRAINAGE. PULSES 2+ AND CAP REFILL <3 SECONDS. NO EDEMA NOTED. IV INFUSING WITHOUT DIFFICULTY. PROVIDED ICE CHIPS. SCUDS HOOKED UP. SU IN PLACE DRAINING CLEAR, YELLOW, URINE. CALL LIGHT WITHIN REACH.
--- NOTE | 2020-10-12 14:38 | HMH.PHAVTE ---
[facility] Pharmacy VTE Monitoring - Patient Demographics Admission date: 10/12/20 Report Date: 10/12/20 Time: 14:38 Allergies/Adverse Reactions: Patient Allergies morphine Allergy (Mild, Verified 10/09/20 13:21) Nausea/Vomiting pregabalin [From Lyrica] Adverse Reaction (Verified 10/09/20 13:21) Height: 1.65 m Weight: 118.388 kg Patient Problems: Current Active Problems Menorrhagia (Acute) Dysmenorrhea (Acute) Intramural uterine fibroid (Acute) Tobacco use (Chronic) - Prophylaxis VTE Prophylaxis Ordered?: Yes Types of VTE Prophylaxis: IPCS Thigh High Location of Applied Device: Bilateral Lower Extremeties
[2020-10-12 14:53] LABS: Microscopic,Cath URINE MICROSCOPIC (MICROSCOPIC)
[2020-10-12 14:56] LABS: Appearance,Urine/Cath SL CLOUDY (Clear); Blood, Urine/Cath 2+ (Negative); Color,Urine/Cath YELLOW (Yellow); Glucose,Urine/Cath (UA) Negative (Negative); Ketones,Urine/Cath TRACE (Negative); Leukocyte Esterase,Cath Negative (Negative); Nitrate,Cath Negative (Negative); PH,Urine/Cath 5.5 (5.0-8.5); Protein,Urine/Cath 1+ (Negative); Specific Gravity, Urine/Cath >= 1.030 (1.005-1.030); Urobilinogen,Cath 0.2 EU/dl (0.2)
[2020-10-12 15:01] LABS: Bilirubin,Cath 1+ (Negative)
[2020-10-12 15:09] LABS: Bacteria,Urine/Cath 2+ /lpf; Mucus,Urine/Cath 1+ /lpf
--- NOTE | 2020-10-12 15:25 | PC.NURSE ---
patient resting in bed at this time. red jello provided. patient has tolerated ice chips and water today. Has been resting on and off since arriving to the floor. pain well controlled now. holding Po Tylenol until patient eats something. no needs voiced. vitals within normal limits.
--- NOTE | 2020-10-12 15:55 | PC.NURSE ---
lab at bedside now
--- NOTE | 2020-10-12 16:20 | PC.NURSE ---
reassessment done at this time. no changes from previous assessment. Lungs remain cta and bowel sounds hyperactive. pt requesting regular tray. has done well on clear liquids. pulses 2+, cap refill <[address] and pollard in place draining yellow urine. iv infusing. rates pain 7/10 at times but is able to rest. 4 lap sites noted. old dried blood noted to dressing on right side of abdomen. pt has been using her splinting pillow. on 1 liter per nc at this moment. No needs.
[2020-10-12 17:00] LABS: Hematocrit 39.9 % (37.0-47.0); Hemoglobin 13.2 g/dL (12.2-16.2)
--- NOTE | 2020-10-12 17:45 | PC.NURSE ---
dr. bland at bedside. orders to remove atul suarezight r/v
--- NOTE | 2020-10-12 18:48 | PC.NURSE ---
Perdomo emptied at this time- fan provided to patient. no current needs voiced.
--- NOTE | 2020-10-12 19:07 | PC.NURSE ---
report given to scott purvis rn
--- NOTE | 2020-10-12 21:45 | PC.NURSE ---
SU REMOVED AT THIS TIME. PATIENT TOLERATED WELL. AMBULATED WITH STANDBY ASSISTANCE TO THE BATHROOM AND ATTEMEPTED TO VOID. NO VOID. 300ML EMPTIED FROM SU BAG AT D/C. PATIENT TOLERATED WELL.
--- NOTE | 2020-10-12 21:45 | PC.NURSE ---
O2 REMOVED WHILE AMBULATING TO BATHROOM AND THEN TO CHAIR. PULSE-OX APPLIED WHEN SITTING IN CHAIR. 97% ON ROOM AIR. O2 NOT REAPPLIED
--- NOTE | 2020-10-12 23:15 | PC.NURSE ---
Addendum entered by Rola Paniagua RN 10/12/20 23:24: REPORT RECEIVED AT 21:00. NOTE ENTERED AT THIS TIME. Original Note: REPORT FROM Law WOODARD RN
[2020-10-13] VITALS: BP 111/54; PULSE 61; RESP 18; TEMP 37.3; O2SAT 99
--- NOTE | 2020-10-13 04:27 | PC.NURSE ---
PATIENT HAS DONE VERY WELL THIS SHIFT. PAIN WELL CONTROLLED FOR SCHEDULED AND PRN MEDICATIONS. VSS, LUNGS CTAB. BOWEL SOUNDS ACTIVE IN ALL QUADRANTS. PT IS A&O X4 AND AMBULATES WELL WITHOUT ASSISTANCE. SHE HAS RESTED COMFORTABLY. SCUDS IN PLACE. IV PATENT AND INFUSING WITH NO ISSUES. CALL BETTENCOURT IN REACH.
[2020-10-13 04:30] VITALS: BP 126/68; PULSE 80; RESP 18; TEMP 37.1; O2SAT 94
[2020-10-13 06:10] LABS: Basophils % 0.2 % (0.1-2.0); Eosinophils # 0.1 K/mm3 (0.0-0.4); Eosinophils % 0.3 % (0.1-12.0); Hematocrit 37.1 % (37.0-47.0); Hemoglobin 11.9 g/dL (12.2-16.2); Lymphocytes # 2.3 K/mm3 (0.7-4.5); Lymphocytes % 15.1 % (10-50); Mean Corpuscular Hemoglobin 27.4 pg (27.0-31.2); Mean Corpuscular Volume 85.6 fl (81-99); Mean Platelet Volume 9.2 fl (7.4-10.4); Monocytes # 0.8 K/mm3 (0.1-1.0); Monocytes % 5.2 % (1.7-9.3); Neutrophils # 12.2 K/mm3 (1.8-7.8); Neutrophils % 79.2 % (37.0-80.0); Platelet Count 217 K/mm3 (142-424); Red Blood Count 4.34 M/mm3 (4.20-5.40); Red Cell Distribution Width 14.9 % (11.5-17.5); White Blood Count 15.5 K/mm3 (4.8-10.8)
[2020-10-13 06:14] LABS: MANUAL DIFFERENTIAL MANUAL DIFFERENTIAL (MANUAL DIFF)
[2020-10-13 06:20] LABS: Chloride 104 mmol/L (98-107); Sodium 139 mmol/L (136-145)
[2020-10-13 06:23] LABS: Blood Urea Nitrogen 9 mg/dl (7-17); Creatinine Clearance Estimated 92 mL/min (50-200); Estimated Glomerular Filt Rate 91 ml/min (>60); GFR (African American) 110 ML/MIN (>60)
[2020-10-13 06:24] LABS: Calcium 8.5 mg/dl (8.4-10.2); Carbon Dioxide 29 mmol/L (22.0-30.0); Glucose 105 mg/dl (74-100)
--- NOTE | 2020-10-13 07:00 | INFXCTL.NOTE ---
Report received from David Paniagua RN.
--- NOTE | 2020-10-13 07:00 | PC.NURSE ---
REPORT TO Cora CAMPOS RN
[2020-10-13 07:25] LABS: Eosinophils % 2 % (0-3); Lymphocytes % 10 % (10-50); Monocytes % 3 % (2-9); Neutrophils % 83 % (42-76); RBC Morphology Normal; Total Cells Counted 100
[2020-10-13 07:26] LABS: Platelet Estimate Normal
[2020-10-13 08:00] VITALS: O2SAT 97
[2020-10-13 09:03] VITALS: BP 116/59; PULSE 75; RESP 16; TEMP 37; O2SAT 97
--- NOTE | 2020-10-13 10:00 | PC.NURSE ---
DR. RANDOLPH AT BEDSIDE AT THIS TIME
--- NOTE | 2020-10-13 10:25 | HMH.DCSUM ---
General - General Admission date:: 10/12/20 Discharge date: 10/13/20 HPI HPI: She is a 44-year-old 4 para 4 lady who complains of severe pain with her periods as well as heavy periods. Ultrasound showed that she had a bulky uterus with 2 small fibroids. After having discussed the risk and benefit she elected to have a laparoscopically assisted vaginal hysterectomy and bilateral salpingectomy. Hospital Course Hospital Course: On October 12, 2020 she underwent a laparoscopic-assisted vaginal hysterectomy and bilateral salpingectomy. She has done very well postoperatively and has remained afebrile during hospitalization. She is eating and drinking and ambulating. She is voiding well. She denies any chest pain, shortness of breath or calf tenderness. She is discharged home to follow-up with me in approximately 2 weeks time. She will continue with her home medications. She was given a prescription for Percocet 5/325 number 20 tablets and Motrin 400 number 40 tablets. She was given the usual instructions with respect to limiting her activity, driving and sexual activity. She was given instructions with respect to wound care. Her condition on discharge is stable and improved. Objective Vital signs: Temp Pulse Resp BP Pulse Ox 98.6 F 75 16 116/59 L 97 10/13/20 09:03 10/13/20 09:03 10/13/20 09:03 10/13/20 09:03 10/13/20 09:03 no acute distress - *Routine HEENT Exam Head: Present: normocephalic Eye: Present: EOMI, PERRL ENT: Present: mucous membranes moist - *Routine Neck Exam Present: supple - *Routine Respiratory Exam Present: CTA bilaterally - *Routine Cardiovascular Exam Present: RRR - *Routine Abdominal Exam Present: soft, normoactive bowel sounds. Absent: tenderness Results Labs on day of discharge: Labs from last 24 hours 10/13/20 10/13/20 10/12/20 05:42 05:42 16:15 WBC 15.5 H D RBC 4.34 Hgb 11.9 L 13.2 Hct 37.1 39.9 MCV 85.6 MCH 27.4 MCHC 32.0 RDW 14.9 Plt Count 217 MPV 9.2 Neut % (Auto) 79.2 Lymph % (Auto) 15.1 Ross % (Auto) 5.2 Eos % (Auto) 0.3 Baso % (Auto) 0.2 Neut # (Auto) 12.2 H Lymph # (Auto) 2.3 Ross # (Auto) 0.8 Eos # (Auto) 0.1 Baso # (Auto) 0.0 Total Counted 100 Neutrophils % (Manual) 83 H Band Neutrophils % 2.0 Lymphocytes % (Manual) 10 Monocytes % (Manual) 3 Eosinophils % (Manual) 2 Platelet Estimate Normal RBC Morphology Normal Sodium 139 Potassium 4.0 Chloride 104 Carbon Dioxide 29 Anion Gap 10.0 BUN 9 Creatinine 0.70 Estimated Creat Clear 92 Estimated GFR 91 Est GFR ( Amer) 110 Glucose 105 H Calcium 8.5 Urine Color Urine Appearance Urine pH Ur Specific [place] Urine Protein Urine Glucose (UA) Urine Ketones Urine Blood Urine Nitrate Urine Bilirubin Urine Urobilinogen Ur Leukocyte Esterase Urine RBC Urine WBC Ur Squamous Epith Cells Urine Bacteria 10/12/20 10:51 WBC RBC Hgb Hct MCV MCH MCHC RDW Plt Count MPV Neut % (Auto) Lymph % (Auto) Ross % (Auto) Eos % (Auto) Baso % (Auto) Neut # (Auto) Lymph # (Auto) Ross # (Auto) Eos # (Auto) Baso # (Auto) Total Counted Neutrophils % (Manual) Band Neutrophils % Lymphocytes % (Manual) Monocytes % (Manual) Eosinophils % (Manual) Platelet Estimate RBC Morphology Sodium Potassium Chloride Carbon Dioxide Anion Gap BUN Creatinine Estimated Creat Clear Estimated GFR Est GFR ( Amer) Glucose Calcium Urine Color Yellow Urine Appearance Sl cloudy Urine pH 5.5 Ur Specific [place] >= 1.030 Urine Protein 1+ Urine Glucose (UA) Negative Urine Ketones Trace Urine Blood 2+ Urine Nitrate Negative Urine Bilirubin 1+ A Urine Urobilinogen 0.2 Ur Leukocyte Esterase Negative Urine RBC 5-10 Urine WBC 3-5 Ur Squamous Epith [place]
--- NOTE | 2020-10-13 11:20 | INFXCTL.NOTE ---
Tegaderm x4 removed and bandaid in place over steristrips. Pt. tolerated well.
--- NOTE | 2020-10-13 11:25 | PC.NURSE ---
DISCHARGE EDUCATION PROVIDED. QUESTIONS ENCOURAGE AND ANSWERED. PT. V/U.
--- NOTE | 2020-10-13 11:29 | PC.NURSE ---
PT. LEFT UNIT VIA WHEELCHAIR, PT. ACCOMPANIED BY STAFF X1, AND SPOUSE.
[2020-10-14 11:15] VITALS: BP 151/94; PULSE 78; TEMP 36.7
--- NOTE | 2020-10-14 11:15 | HMH.ANESII ---
[facility] Anesthesia Record Part II Discharge Time: 11:40 Destination: Obstetric Gynecology Dept PACU nurse assessment reviewed?: Yes Patient Condition:: Good Anesthesia Complications:: None Swallowing reflex intact?: Yes Cyanosis?: No Blood Pressure: 151/94 Pulse Rate: 78 Temperature: 98.0 F Mental Status: Alert & Oriented Pain level:: 3 Nausea and/or vomitting:: None Intake, IV Amount: 30
== END 2020-10-13 11:30 | disposition home or self-care (01) ==
LOC: OB 12:28
PROVIDERS: Admitting Provider Nurse Practitioner Obstetrics & Gynecology; PCP Nurse Practitioner Family; Visit Provider Nurse Practitioner Obstetrics & Gynecology
PROC: 0UT9FZZ Resection of Uterus, Via Natural or Artificial Opening With Percutaneous Endoscopic Assistance (ICD-10-PCS; CPT 58552; principal; 2020-10-12 08:45)
DX: D25.9 Leiomyoma of uterus, unspecified (principal); J45.909 Unspecified asthma, uncomplicated; F17.210 Nicotine dependence, cigarettes, uncomplicated; N85.2 Hypertrophy of uterus
CPT/HCPCS: 58552; 36415; 80048; 81001; 85007; 85014; 85018; 85025; 87086; 96374; G0378; J2405

== ENCOUNTER → 2021-02-12 18:19 | Outpatient (CLI) | payer OTHER, SELFPAY | PROVIDERS: Visit Provider Nurse Practitioner Family | DX: Z20.822 Contact with and (suspected) exposure to COVID-19 (principal) | CPT/HCPCS: C9803; U0003; U0005 ==

== ENCOUNTER → 2022-05-26 12:46 | Outpatient (CLI) | payer OTHER, SELFPAY ==
--- NOTE | 2022-05-26 12:48 | MR_ITS ---
FINAL REPORT CLINICAL HISTORY: RECURRENT HEADACHE, DIZZINESS, NAUSEA FINDINGS: Multi planar MR imaging was obtained through the brain without contrast. The midline structures appear intact. There is no evidence of Chiari malformation. On T2 and flair axial images the brain parenchyma is homogeneous. On diffusion-weighted images there is no evidence of restricted diffusion. There is mild mucoperiosteal thickening in the sphenoid sinuses. There are no air-fluid levels. The seventh and eighth nerve root complexes are intact. IMPRESSION: Essentially unremarkable nonenhanced brain MRI. Reviewed, Interpreted and Dictated by Edu Scott MD Transcribed by Eileen Carpenter Authenticated and [facility]
--- NOTE | 2022-05-26 13:35 | CT_ITS ---
FINAL REPORT TECHNIQUE: Thin section axial CT images with coronal and sagittal reformats were performed through the neck. This study was performed with techniques to keep radiation doses as low as reasonably achievable (ALARA). Individualized dose reduction techniques using automated exposure control or adjustment of mA and/or kV according to the patient''s size were employed. CLINICAL HISTORY: SWELLING, MASS AND LUMP IN NECK FINDINGS: There is mild bilateral cervical adenopathy. These nodes have a preserved fatty giovani. Salivary glands are normal. Larynx is unremarkable. Multiple small calcifications within the right tonsil. Thyroid gland is unremarkable. There is abnormal mucoperiosteal thickening in the sphenoid sinus consistent with chronic sinusitis. IMPRESSION: Bilateral cervical adenopathy, nonspecific, may be infectious, inflammatory, or neoplastic. Continued follow-up is recommended. Chronic sinusitis. Reviewed, Interpreted and Dictated by Edu Scott MD Transcribed by Eileen Carpenter Authenticated and [facility]
== END ==
PROVIDERS: PCP Nurse Practitioner Family; Visit Provider Nurse Practitioner Family
DX: R51.9 Headache, unspecified (principal); R42 Dizziness and giddiness; R11.0 Nausea; H53.8 Other visual disturbances; R22.1 Localized swelling, mass and lump, neck
CPT/HCPCS: 70490; 70551

== ENCOUNTER 2023-04-29 08:36 | Emergency (ER) | payer OTHER, SELFPAY ==
[2023-04-29 08:50] VITALS: BP 135/83; PULSE 78; RESP 20; TEMP 37; O2SAT 98; BMI 40.8
--- NOTE | 2023-04-29 09:01 | ED_ITS ---
Discharge Plan Disposition Patient Disposition: Home, Self-Care Condition: Good Prescriptions Prescriptions: New amoxicillin-pot clavulanate 875-125 mg Tablet 1 tab PO Q12H Qty: 20 0RF ibuprofen 600 mg tablet 600 mg PO Q6HP PRN (Reason: Moderate Pain) Qty: 20 0RF No Action ProAir RespiClick 90 mcg/actuation aerosol powdr breath activated 2 inh INHALATION Q6H PRN (Reason: wheezing) 30 Days Qty: 1 0RF fluticasone propionate 50 mcg/actuation spray,suspension 1 spray INTRANASAL BID 7 Days Qty: 16 0RF Rx Instructions: administer into each nostril Referrals Follow up/Referrals: Provider,Referral, MD [Primary Care Provider] - See instructions Activity Restrictions/Add. Instructions Additional Instructions/Restrictions: Take medication as prescribed Follow up with your Dentist as scheduled for further treatment Take Ibuprofen as prescribed for inflamation and pain if you need something more may use Tylenol Follow up with your Family Doctor Straight to ER if any life threatening symptoms Clinical Impressions Clinical Impression: Dental abscess Instructions Patient Instructions: DI for Tooth Abscess, Tooth Abscess Discharge ED Provider: Rosie Pennington [facility] General Stated complaint: gum pain Mode of Arrival: Ambulatory Source of Information: Patient Limitations: No Limitations Time Seen by Provider: 04/29/23 09:01 Description of Symptoms (Recalled from Triage Doc. by RN): PATIENT C/O SWELLING TO RIGHT SIDE OF FACE (POSSIBLE DENTAL ABSCESS) THAT STARTED YESTERDAY HEENT Symptoms (Recalled from RN notes): Yes Resp Symptoms (Recalled from RN notes): No Skin Symptoms (Recalled from RN notes): No MS Symptoms (Recalled from RN notes): No Functional Status (Recalled from RN notes): WNL History of Present Illness Provider Complaint: Patient states that her front teeth are broken off and she has been putting off going to the dentist States yesterday she noticed her gums was looking red and swollen and she made appointment with dentist but couldnt get in for several days and when she woke up this morning the swelling in the right side of her face is worse so she came in Related Data Previous Rx's Medication Instructions Recorded albuterol sulfate 90 mcg/actuation 2 inh inhalation Q6H PRN wheezing 02/12/21 breath activated powder inhaler 30 days #1 ea (ProAir RespiClick) fluticasone propionate 50 1 spray intranasal BID nasal 02/18/21 mcg/actuation nasal congestion 7 days #16 grams spray,suspension amoxicillin 875 mg-potassium 1 tab PO Q12H #20 tabs 04/29/23 clavulanate 125 mg tablet ibuprofen 600 mg tablet 600 mg PO Q6HP PRN Moderate Pain 04/29/23 #20 tabs Allergies Allergy/AdvReac Type Severity Reaction Status Date / Time morphine Allergy Mild Nausea/Vomi Verified 02/18/21 11:44 ting pregabalin [From Lyrica] AdvReac Verified 02/18/21 11:44 Worker's Comp Is this a Worker's Comp case?: No [facility] Disclaimer: The information contained in this section may have been updated after the patient was seen, as this information can be updated by other users. 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 current occupational exposures/hazards: No caffeine: Yes ROS Obtained: Yes All systems reviewed & no additional complaints except as documented and Yes Systems reviewed as appropriate & no additional complaints except as documented Constitutional Constitutional: Reports system reviewed and no additional complaints, except as documented and Reports as per HPI Eyes Eyes: Reports system reviewed and no additional complaints, except as documented and Reports as per HPI ENT Ears, Nose, Mouth, and Throat: Reports system reviewed and no additional complaints, except as documented, Reports as per HPI and Reports dental pain Cardiovascular Cardiovascular: Reports system reviewed and no additional complaints, except as documented and Reports as per HPI Respiratory Respiratory: Reports system reviewed and no additional complaints, except as documented and Reports as per HPI Gastrointestinal Gastrointestingal: Reports system reviewed and no additional complaints, except as documented and as per HPI Physical Exam General General appearance: alert and in no apparent distress ENT ENT exam: Present mucous membranes moist Expanded ENT Exam Teeth exam: Present dental caries, gingival swelling and other (several teeth broken off at gumline, redness and swelling in gums and right side of face) Respiratory Respiratory exam: Present normal lung sounds bilaterally; Absent respiratory distress or wheezes Cardiovascular Cardiovascular exam: Present regular rate, normal rhythm and normal heart sounds Neurological Exam Neurological exam: Present alert, oriented X3 and normal gait Medical Decision Making Jules Inquiry Pt receiving controlled substance: No Jules was queried for this patient: No Vital Signs: 04/29/23 08:50 Temperature 98.6 F Temperature Source Oral Pulse Rate [Right Brachial] 78 Respiratory Rate 20 Blood Pressure [Right Arm] 135/83 Blood Pressure Mean [Right Arm] 100 Blood Pressure Source [Right Arm] Automatic Cuff Blood Pressure Position [Right Arm] Sitting 02 Sat by Pulse Oximetry 98 Oxygen Delivery Method Room Air
[2023-04-29 09:08] VITALS: BP 135/83; PULSE 78; RESP 20; TEMP 37; O2SAT 98
== END 2023-04-29 09:11 | disposition home or self-care (01) ==
PROVIDERS: Emergency Provider Nurse Practitioner
DX: K04.7 Periapical abscess without sinus (principal); R22.0 Localized swelling, mass and lump, head; F17.210 Nicotine dependence, cigarettes, uncomplicated
CPT/HCPCS: 99204; 99212; G0463

== ENCOUNTER 2023-06-07 21:34 | Emergency (ER) | payer OTHER, SELFPAY ==
[2023-06-07 21:36] VITALS: BP 106/66; PULSE 77; RESP 18; TEMP 37.1; O2SAT 98; BMI 35.5
[2023-06-07 22:55] VITALS: BP 140/81; PULSE 80; RESP 16; O2SAT 98
--- NOTE | 2023-06-07 23:00 | ED_ITS ---
Discharge Plan Disposition Patient Disposition: Home, Self-Care Condition: Good Prescriptions Prescriptions: New amoxicillin-pot clavulanate 875-125 mg tablet 1 tab PO BID 10 Days Qty: 20 0RF oxycodone 5 mg tablet 5 mg PO Q8H PRN (Reason: pain) Qty: 12 0RF No Action ProAir RespiClick 90 mcg/actuation aerosol powdr breath activated 2 inh INHALATION Q6H PRN (Reason: wheezing) 30 Days Qty: 1 0RF fluticasone propionate 50 mcg/actuation spray,suspension 1 spray INTRANASAL BID 7 Days Qty: 16 0RF Rx Instructions: administer into each nostril amoxicillin-pot clavulanate 875-125 mg Tablet 1 tab PO Q12H Qty: 20 0RF ibuprofen 600 mg tablet 600 mg PO Q6HP PRN (Reason: Moderate Pain) Qty: 20 0RF Referrals Follow up/Referrals: Linh Blair APRN [Primary Care Provider] - See instructions Activity Restrictions/Add. Instructions Additional Instructions/Restrictions: Please follow-up with your primary care provider. [facility] if you develop any new or worsening symptoms or become concerned for your health. Please follow-up with your dentist as soon as possible. Please take antibiotics as prescribed. Please take Tylenol ibuprofen and oxycodone as needed for pain.. Clinical Impressions Clinical Impression: Dental infection, Left facial swelling Discharge ED Provider: Guillaume Gr General Adult HPI General Chief complaint: Dental/Oral Stated complaint: Left Jaw swollen with pain Time Seen by Provider: 06/07/23 22:59 History of Present Illness HPI narrative: 47-year-old female without significant past medical history presents with left upper jaw swelling. She reports that she has multiple bad teeth and one of them cracked recently. Today she noticed significant worsening of left facial swelling. She is trying to get into see her dentist but will not be able to get in for at least a week. She denies any fever at home. She is still able to tolerate p.o. She reports significant pain. Related Data Previous Rx's Medication Instructions Recorded albuterol sulfate 90 mcg/actuation 2 inh inhalation Q6H PRN wheezing 02/12/21 breath activated powder inhaler 30 days #1 ea (ProAir RespiClick) fluticasone propionate 50 1 spray intranasal BID nasal 02/18/21 mcg/actuation nasal congestion 7 days #16 grams spray,suspension amoxicillin 875 mg-potassium 1 tab PO Q12H #20 tabs 04/29/23 clavulanate 125 mg tablet ibuprofen 600 mg tablet 600 mg PO Q6HP PRN Moderate Pain 04/29/23 #20 tabs amoxicillin 875 mg-potassium 1 tab PO BID 10 days #20 tabs 06/07/23 clavulanate 125 mg tablet oxycodone 5 mg tablet 5 mg PO Q8H PRN pain #12 tabs 06/07/23 Allergies Allergy/AdvReac Type Severity Reaction Status Date / Time morphine Allergy Mild Nausea/Vomi Verified 02/18/21 11:44 ting pregabalin [From Lyrica] AdvReac Verified 02/18/21 11:44 PFSH PFS Disclaimer: The information contained in this section may have been updated after the patient was seen, as this information can be updated by other users. 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 current occupational exposures/hazards: No caffeine: Yes ROS Obtained: Yes All systems reviewed & no additional complaints except as documented Physical Exam General General appearance: alert and in no apparent distress Head Head exam: atraumatic, normocephalic and other (Left maxillary swelling noted) Eye Eye exam: Present normal appearance, PERRL and EOMI ENT ENT exam: Present normal external ear exam and other (Numerous bad teeth, no intraoral fluctuance noted to suggest drainable abscess) Neck Neck exam: Present normal inspection and full ROM Chest Chest inspection: Present normal inspection and symmetric chest wall rise; Absent tenderness Respiratory Respiratory exam: Present normal lung sounds bilaterally; Absent respiratory distress Cardiovascular Cardiovascular exam: Present regular rate and normal rhythm Abdominal Exam Abdominal exam: Present soft; Absent distention, tenderness or guarding Extremities Exam Extremities exam: Present normal inspection; Absent edema or joint swelling Back Exam Back exam: Present normal inspection; Absent tenderness Neurological Exam Neurological exam: Present alert and oriented X3; Absent motor sensory deficit Psychiatric Psychiatric exam: Present normal affect and normal mood Skin Skin exam: Present warm, dry and normal color Lymphatic Lymphatic Findings: no adenopathy Medical Decision Making Medical Records Medical records reviewed: Yes I reviewed the patient's medical records. Jules Inquiry Pt receiving controlled substance: No Jules was queried for this patient: No Vital Signs: 06/07/23 21:36 06/07/23 22:55 06/07/23 23:01 Temperature 98.8 F Temperature Source Oral Pulse Rate 80 84 Pulse Rate [Left Radial] 77 Respiratory Rate 18 16 17 Blood Pressure 140/81 106/66 L Blood Pressure [Right Arm] 106/66 L Blood Pressure Mean 111 79 Blood Pressure Mean [Right Arm] 79 Blood Pressure Source Blood Pressure Source [Right Arm] Automatic Cuff Blood Pressure Position Blood Pressure Position [Right Arm] Sitting 02 Sat by Pulse Oximetry 98 98 95 Oxygen Delivery Method Room Air Room Air Room Air 06/07/23 23:25 Temperature 98.8 F Temperature Source Oral Pulse Rate 88 Pulse Rate [Left Radial] Respiratory Rate 18 Blood Pressure 106/66 L Blood Pressure [Right Arm] Blood Pressure Mean Blood Pressure Mean [Right Arm] Blood Pressure Source Automatic Cuff Blood Pressure Source [Right Arm] Blood Pressure Position Sitting Blood Pressure Position [Right Arm] 02 Sat by Pulse Oximetry Oxygen Delivery Method Room Air Lab Data Lab results reviewed: Yes I reviewed the patient's lab results. Orders (Tests/Meds): ED MEDICATIONS Discontinued Medications Generic Name Dose Route Start Last Admin Trade Name Freq PRN Reason Stop Dose Admin Amoxicillin/Clavulanate Potassium 1 each 06/07/23 23:14 06/07/23 23:20 Amoxicillin/Clavulanate Potassium 875/125mg Tablet PO 06/07/23 23:15 1 each ONCE ONE Administration Oxycodone HCl 5 mg 06/07/23 23:15 06/07/23 23:20 Oxycodone 5mg Immediate Release Tablet PO 06/07/23 23:16 5 mg ONCE ONE Administration Medical Decision Narrative: 47-year-old female with history of prior dental infections presents with left facial pain and swelling after a tooth fractured recently. History was obtained interactive discussion with patient. On arrival, patient is [afebrile, hemodynamically stable, satting appropriately, alert, oriented x4, GCS 15], moving all extremities spontaneously. Full physical exam performed and significant for moderate left facial swelling without obvious abscess. Differential includes but is not limited to pulpitis, dental abscess, cellulitis. Patient was given p.o. oxycodone and p.o. Augmentin for symptomatic management and correction of underlying abnormalities. Given patient history, exam and workup, patient's presentation most likely represents acute odontogenic infection. Patient discharged in stable condition with prescription for antibiotics and pain medications. Recommended she call and try to get into see her dentist sooner. Return precautions given. Procedures Risk/Benefits of Procedure(s) Were Explained: Yes Critical Care Critical Care Time Critical Care Time: No
[2023-06-07 23:01] VITALS: BP 106/66; PULSE 84; RESP 17; O2SAT 95
[2023-06-07] MEDS: AMOXICILLIN/CLAVULANATE POTASSIUM 875/125MG TABLET 1 EACH PO (23:20)
[2023-06-07] MEDS: OXYCODONE 5MG IMMEDIATE RELEASE TABLET 5 MG PO (23:20)
[2023-06-07 23:25] VITALS: BP 106/66; PULSE 88; RESP 18; TEMP 37.1; O2SAT 98
== END 2023-06-07 23:26 | disposition home or self-care (01) ==
PROVIDERS: Emergency Provider Emergency Medicine; PCP Nurse Practitioner
DX: K04.7 Periapical abscess without sinus (principal); R22.0 Localized swelling, mass and lump, head; F17.210 Nicotine dependence, cigarettes, uncomplicated
CPT/HCPCS: 99283

== ENCOUNTER 2023-12-22 07:41 | Outpatient (CLI) | payer BC, SELFPAY ==
--- NOTE | 2023-12-22 07:43 | US_ITS ---
Ultrasound Sonograher: PROCEDURE: US TRANSVAGINAL CLINICAL INDICATION: Pelvic pain COMPARISON: US US TRANSVAGINAL from 08/28/2020 FINDINGS: Transvaginal sonographic images of the pelvis were obtained. UTERUS: The uterus is surgically absent. The vaginal vault is intact. LEFT OVARY: Not visualized RIGHT OVARY: Not visualized The ovaries are not seen and are possibly both surgically absent. There is no fluid in the cul-de-sac. IMPRESSION: 1. The uterus has been surgically removed. 2. Neither ovary could be visualized today. They are possibly both surgically absent. 3. Vaginal vault is intact and there is no fluid in the cul-de-sac. Dictated by: Hollis Gutierrez MD 12/22/2023 10:52 Hollis Gutierrez MD in [place] 12/22/2023 10:52
--- NOTE | 2023-12-22 07:43 | US_ITS ---
PROCEDURE INFORMATION: Exam: US Abdomen Complete Exam date and time: 12/22/2023 8:07 AM Age: 48 years old Clinical indication: Abdominal pain; Acute; Additional info: Abd pain TECHNIQUE: Imaging protocol: Real-time ultrasound of the abdomen with image documentation. Complete exam. COMPARISON: US TRANSVAGINAL 12/22/2023 7:56 AM FINDINGS: Liver: There is a diffuse increase in hepatic parenchymal echogenicity, consistent with fatty infiltration. Gallbladder: Sludge in the gallbladder. Gallbladder wall 2.6 mm Biliary ducts: Common bile duct 3.2 mm Pancreas: Visualized pancreas is unremarkable. Right kidney: Right kidney 9.3 cm . No hydronephrosis Left kidney: Left kidney 9.8 cm. No hydronephrosis Spleen: Spleen 12.3 cm Aorta: Aorta 1.8 cm. Inferior vena cava: Normal. Portal venous: Hepatopetal flow in the portal vein IMPRESSION: There is a diffuse increase in hepatic parenchymal echogenicity, consistent with fatty infiltration.
== END 2023-12-22 23:59 | disposition home or self-care (01) ==
LOC: RAD 07:41
PROVIDERS: PCP Nurse Practitioner; Visit Provider Nurse Practitioner
DX: R10.9 Unspecified abdominal pain (principal)
CPT/HCPCS: 76700; 76830

== ENCOUNTER 2024-01-06 09:38 | Outpatient (CLI) | payer BC, SELFPAY ==
--- NOTE | 2024-01-06 09:54 | NM_ITS ---
FINAL REPORT CLINICAL HISTORY: gallbladder sludge, abd pain 10:00am 8.74 mci tc choletec 11:05am 2.2 mcg cck pain with cck FINDINGS: Sequential anterior projection images of the abdomen were obtained after the intravenous injection of 8.74 mCi technetium 99m Choletec. There is normal uptake of radiotracer by the liver. The bile ducts are visualized by 5 minutes. Gallbladder activity is seen by 15 minutes. Bowel activity is noted by 5 minutes. After 1 hour, 2.2 ?g of CCK was injected intravenously for calculation of gallbladder ejection fraction. The gallbladder ejection fraction is 63%, which is within normal limits. IMPRESSION: No evidence of cystic duct or bile duct obstruction. Normal gallbladder ejection fraction of 63%. Reviewed, Interpreted and Dictated by Mo Peña III, MD Transcribed by Radha Randall Authenticated and [facility]
[2024-01-06] MEDS: SINCALIDE 2.2 MCG in 0.9 % SODIUM CHLORIDE 50 ML 100 MCG IV (11:00)
[2024-01-06] MEDS: ISOTOPE CHOLETECH;1 DOSE (UP TO 15 MCI) IV (12:06)
[2024-01-06] MEDS: SODIUM CHLORIDE 0.9% 10ML SYR (RAD ONLY) 10 ML IV (12:07)
== END 2024-01-06 23:59 | disposition home or self-care (01) ==
LOC: RAD 09:38
PROVIDERS: PCP Nurse Practitioner; Visit Provider Nurse Practitioner
DX: K82.8 Other specified diseases of gallbladder (principal); R10.9 Unspecified abdominal pain
CPT/HCPCS: 78227; A9537; J2805

== ENCOUNTER 2024-01-08 08:29 | Outpatient (CLI) | payer BC, SELFPAY ==
--- NOTE | 2024-01-08 08:32 | CT_ITS ---
FINAL REPORT CLINICAL HISTORY: .ABD PAIN, NAUSEA COMPARISON: None FINDINGS: CT OF THE ABDOMEN AND PELVIS WITH CONTRAST Axial CT images of the abdomen and pelvis were obtained after the administration of IV contrast. Reformatted images were also obtained and reviewed. This study was performed with techniques to keep radiation doses as low as reasonably achievable (ALARA). Individualized dose reduction techniques using automated exposure control or adjustment of mA and/or kV according to the patient's size were employed. Abdomen: A calcified granuloma is present in the right lung base. The heart is normal in size. The liver has an unremarkable appearance, without evidence of mass or biliary ductal dilatation. The spleen is unremarkable. No adrenal mass is present. The pancreas has an unremarkable appearance. There is a 6 mm mass in the medial aspect of the left kidney, which is not consistent in appearance with a simple cyst, but may represent a complex cyst or small neoplasm. The aorta is normal in caliber. There is no free fluid or adenopathy. No mass or abnormal fluid collection is seen. Pelvis: The appendix is normal the urinary bladder is unremarkable. No inflammatory process is seen. There is no evidence of mass or adenopathy. There is no evidence of bowel obstruction. There is diverticulosis of the descending and sigmoid portions of the colon, without evidence of acute inflammatory change. IMPRESSION: 6 mm mass in the medial aspect of the left kidney, which does not represent a simple cyst. This may represent a complex cyst versus a small neoplasm, and 6-month follow-up renal protocol CT is suggested for further evaluation. Diverticulosis of the sigmoid and descending portions of the colon is present without acute inflammatory change. Reviewed, Interpreted and Dictated by Mo Peña III, MD Transcribed by Gabriela Sherman Authenticated and [facility]
[2024-01-08] MEDS: SODIUM CHLORIDE 0.9% 10ML SYR (RAD ONLY) 10 ML IV (09:11)
[2024-01-08] MEDS: IOPAMIDOL-370 (76%);100ML BOTTLE 75 ML IV (09:11)
== END 2024-01-08 23:59 | disposition home or self-care (01) ==
LOC: RAD 08:30
PROVIDERS: PCP Nurse Practitioner; Visit Provider Nurse Practitioner
DX: R10.9 Unspecified abdominal pain (principal)
CPT/HCPCS: 74177; Q9967

== ENCOUNTER 2024-02-02 10:08 | Outpatient (CLI) | payer BC, SELFPAY ==
--- NOTE | 2024-02-02 10:11 | CT_ITS ---
FINAL REPORT TECHNIQUE: Axial CT images of the abdomen were obtained with IV contrast. Oral contrast was administered. Coronal reformatted images were also obtained. This study was performed with techniques to keep radiation doses as low as reasonably achievable (ALARA). Individualized dose reduction techniques using automated exposure control or adjustment of mA and/or kV according to the patient''s size were employed. CLINICAL HISTORY: KIDNEY MASS PREVIOUS SCAN IN DEC 2023 RECOMMENDED 6 MOS FU, BUT PATIENT SAID HER PAIN HAS INCREASED SO THAT IS WHY WE ARE DOING TODAY COMPARISON: 01/08/2024 FINDINGS: The lung bases are clear. The liver has an unremarkable appearance, without evidence of mass. The gallbladder appears normal without evidence of gallstones. There is no evidence of biliary ductal dilatation. The pancreas appears normal. The spleen size is within normal limits. There is a stable, 6 mm mass in the medial left kidney which does not appear to be a simple cyst. This may represent a complex cyst versus renal neoplasm. There is no evidence of adenopathy. No abnormal fluid collection is seen. The appendix is normal. There is descending and sigmoid diverticulosis. IMPRESSION: Stable 6 mm mass in the medial left kidney does not appear to be a simple cyst and may represent a complex cyst versus renal neoplasm. Continued follow-up is recommended. Reviewed, Interpreted and Dictated by Mo Peña III, MD Transcribed by Eileen Carpenter Authenticated and [facility]
[2024-02-02] MEDS: SODIUM CHLORIDE 0.9% 10ML SYR (RAD ONLY) 10 ML IV (10:37)
[2024-02-02] MEDS: IOPAMIDOL-370 (76%);100ML BOTTLE 75 ML IV (10:37)
== END 2024-02-02 23:59 | disposition home or self-care (01) ==
LOC: RAD 10:09
PROVIDERS: PCP Nurse Practitioner; Visit Provider Nurse Practitioner
DX: N28.89 Other specified disorders of kidney and ureter (principal)
CPT/HCPCS: 74160; Q9967

== ENCOUNTER 2024-03-21 08:58 | Outpatient (POV) | payer BC, SELFPAY ==
--- NOTE | 2024-03-21 09:15 | EXP.PAIN.OV ---
HPI Data of Consult Patient: new to practice Consult date: 03/21/24 Requesting Physician: Paulina Freedman APRN Primary Care Provider: Shreya Blair APRN Consult Narrative History of present illness: Ms. Francisco is a 48 year old female who presents today as a new patient. She is a referral from [facility] however was previously a patient at our office back in 2018 for history of left breast pain related to cyst. Patient at that time did have nerve blocks and was tried on 75 mg pregabalin however had side effects. Today she rates her pain a 6 out of 10. Patient states that this is all related to abdominal pain kidney cyst. She states it has been going on for some time worsen. She states that when it hits it is severe and feels like labor pains. She states having any type of bowel movements this is extreme pain typically last for hours after its. She states that they have done CTs and HIDA scan and that as of right now there is no plan for surgery. They have ruled out cancerous however it was labeled as a complex cyst of her left kidney. they are planning on ordering an MRI in approximately 4 months and that if it has grown then there is a possibility they will talk about surgical intervention. Patient does also state that she had to have a total hysterectomy back in 2020 due to having multiple cyst on this organ and having a lot of difficulty with heavy menstruation. She is currently managed with Campbell 10 mg 4 times a day from an outside provider. Her Jules has been reviewed and is appropriate. CC: Paulina Freedman APRN [facility] Disclaimer: The information contained in this section may have been updated after the patient was seen, as this information can be updated by other users. Medical History (Updated 03/21/24 @ 09:19 by Paulina Freedman APRN) Family history of uterine cancer Family history of breast cancer Family history of colorectal cancer Tobacco use Fatigue Family History (Updated 03/21/24 @ 09:40 by Jennifer Steven RN) Other Unknown family medical history Social History Smoking Status: Current every day smoker tobacco type: cigarettes packs per day: 1 second hand exposure: Yes alcohol intake: current alcohol intake frequency: holidays/special occasions only substance use type: denies use current occupational status: employed Travel in the last 8 weeks: None household members: other housing: house 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 current occupational exposures/hazards: No caffeine: Yes Review of Systems Review of Systems Review of systems:: pertinent systems reviewed and negative unless documented below Review of systems (narrative): Review of Systems: General: No recent weight changes, no fever, no sleep disturbances Respiratory: No cough, no shortness of air, no recurring pulmonary infections Cardiovascular/peripheral vascular: No chest pain, no palpitations, no edema, no shortness of breath Gastrointestinal: No new onset incontinence, normal bowel movements reported Genitourinary: No new onset incontinence Musculoskeletal: Abdominal pain Psychiatric: [Normal mood/affect] Neurological: [Denies weakness in extremities], [denies balance issues] Meds Home Medications and Allergies Home Medications ?Medication ?Instructions ?Recorded ?Confirmed ?Type albuterol sulfate 90 mcg/actuation 2 inh inhalation Q6H PRN wheezing 02/12/21 02/18/21 Rx breath activated powder inhaler 30 days #1 ea (ProAir RespiClick) fluticasone propionate 50 1 spray intranasal BID nasal 02/18/21 02/18/21 Rx mcg/actuation nasal congestion 7 days #16 grams spray,suspension ibuprofen 600 mg tablet 600 mg PO Q6HP PRN Moderate Pain 04/29/23 Rx #20 tabs New Prescriptions to Start Prescriptions: Allergies Allergy/AdvReac Type Severity Reaction Status Date / Time morphine Allergy Mild Nausea/Vomi Verified 02/18/21 11:44 ting pregabalin (From Lyrica) AdvReac Verified 02/18/21 11:44 Objective Narrative: Physical Exam: General: Alert and oriented x3, no acute distress, pleasant and cooperative Lungs: Respirations even and unlabored, symmetrical chest expansion Eyes: PERRL Musculoskeletal: Flexion and extension of lumbar [spine] somewhat guarded secondary to pain Neurological: Speech clear, no gross sensory deficit Additional findings Additional findings: FINDINGS: The lung bases are clear. The liver has an unremarkable appearance, without evidence of mass. The gallbladder appears normal without evidence of gallstones. There is no evidence of biliary ductal dilatation. The pancreas appears normal. The spleen size is within normal limits. There is a stable, 6 mm mass in the medial left kidney which does not appear to be a simple cyst. This may represent a complex cyst versus renal neoplasm. There is no evidence of adenopathy. No abnormal fluid collection is seen. The appendix is normal. There is descending and sigmoid diverticulosis. IMPRESSION: Stable 6 mm mass in the medial left kidney does not appear to be a simple cyst and may represent a complex cyst versus renal neoplasm. Continued follow-up is recommended. Reviewed, Interpreted and Dictated by Mo Peña III, MD Transcribed by Eileen Carpenter Authenticated and [facility] Assessment and Plan *Assessment and plan (1) Abdominal pain: Status: Acute Category: Medical Code(s): R10.9 - Unspecified abdominal pain (2) Intramural uterine fibroid: Status: Acute Category: Medical Code(s): D25.1 - Intramural leiomyoma of uterus Plan Patient was counseled due to her extensive history of multiple cyst including on her left breast, uterus and ovaries and now her left kidney that I do believe in the long run she would benefit from a intrathecal pain pump trial. Risk and benefits were discussed with the patient and she would like to proceed forward with this plan of care. Patient has tried and failed conservative therapy. Educational handouts were given at today's visit. If she is deemed an appropriate candidate we will proceed forward with a intrathecal pain pump trial in the future. Patient agrees with this plan of care. Patient will return to clinic in 1 month following her psychological evaluation for reevaluation of symptoms and plan of care. I will also order the patient a compounded cream. Patient has been instructed to contact the clinic with any concerns before the next appointment. Dr. Frereira has reviewed this note and agrees with this plan of care. This note was dictated using voice recognition software and make contain errors or omissions. All injections are used with Lidocaine, Bupivacaine and Depo Medrol. Occasionally urine drug screen is needed to verify patient's compliance with our office pain contract. This is ordered based off specific treatments related to chronic pain with the potential to abuse certain medications.
[2024-03-21 09:38] VITALS: BP 143/100; PULSE 84; RESP 18; O2SAT 98; BMI 38.4
== END 2024-03-21 23:59 | disposition home or self-care (01) ==
LOC: SC.PAIN 09:00
PROVIDERS: PCP Nurse Practitioner; Visit Provider Nurse Practitioner Family
DX: R10.9 Unspecified abdominal pain (principal); D25.1 Intramural leiomyoma of uterus; F17.210 Nicotine dependence, cigarettes, uncomplicated
CPT/HCPCS: 99202; G0463

== ENCOUNTER 2024-07-21 09:42 | Day surgery (SDC) | payer BC, SELFPAY ==
[2024-07-21 11:01] VITALS: BP 147/80; PULSE 66; TEMP 36.2; O2SAT 98; BMI 40.3
--- NOTE | 2024-07-21 11:38 | EXP.HP ---
History of Present Illness *Admission Date: 07/21/24 *Reason for visit:: Lower abdominal pain, bowel irregularity, bloating and gas, rectal bleeding *History of present illness: Mrs. Francisco is a 48-year-old female who is here for diagnostic colonoscopy. She has had lower abdominal pain, bowel irregularity, bloating, gassiness and bright red rectal bleeding. She also notes some mucus with her bowel movements. She does have a sister with colon cancer diagnosed in her 50s. The examination is deemed medically necessary for diagnostic colonoscopy. The patient has been seen, interviewed and examined prior to the procedure by both myself and the anesthesia provider. [facility] Disclaimer: The information contained in this section may have been updated after the patient was seen, as this information can be updated by other users. Medical History (Updated 07/21/24 @ 11:40 by Villa Aleman II, MD) Asthma Migraine History of cyst of breast Breast cancer Family history of uterine cancer Family history of breast cancer Family history of colorectal cancer Tobacco use Fatigue Surgical History History of section History of hysterectomy Family History (Updated 07/21/24 @ 11:07 by Shani Frias RN) Other Bone cancer Breast cancer Colon cancer Heart disease Lung cancer Throat cancer Vaginal cancer Social History (Updated 07/21/24 @ 11:08 by Shani Frias RN) Smoking Status: Current every day smoker tobacco type: cigarettes packs per day: 1 second hand exposure: Yes alcohol intake: never substance use type: denies use current occupational status: employed Travel in the last 8 weeks?: None household members: other housing: house 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 current occupational exposures/hazards: No caffeine: Yes Have you lived/traveled outside US in past 30 days?: No Contact w/someone who lives/traveled outside US past 30 days?: No Exposure to someone with infectious disease in past 14 days?: No Do you have a fever (greater than 100.4 F or 38 C)?: No Have you tested positive for COVID-19?: No Exposed to someone with COVID-19 in past 14 days?: No Do you have a sore throat?: No Do you have a cough?: No Do you have any weakness?: No Do you have any diarrhea?: No Are you experiencing any unusual bleeding?: No Do you have any muscle aches/pain?: No Do you have any abdominal pain?: No Are you experiencing loss of taste or smell?: No Other Medical History Have you received the Flu Vaccine for this season: No Have you received the Pneumonia Vaccine: No Review of Systems Review of Systems Review of systems (narrative): Negative *Cardiovascular Comments: Negative *Gastrointestinal Comments: Negative *Genitourinary Comments: Negative *Musculoskeletal Comments: Negative *Neurologic Comments: Negative Meds Home Medications and Allergies Home Medications ?Medication ?Instructions ?Recorded ?Confirmed ?Type albuterol sulfate 90 mcg/actuation 2 inh inhalation Q6H PRN wheezing 02/12/21 07/21/24 Rx breath activated powder inhaler 30 days #1 ea (ProAir RespiClick) fluticasone furoate 200 1 inh inhalation DAILY 07/05/24 07/21/24 History mcg-vilanterol 25 mcg/dose inhalation powder (Breo Ellipta) hydrocodone 10 mg-acetaminophen 1 tab PO Q8H 07/05/24 07/21/24 History 325 mg tablet oxybutynin chloride 10 mg 10 mg PO QODHS 07/05/24 07/21/24 History tablet,extended release 24 hr trazodone 50 mg tablet 50 mg PO HS 07/05/24 07/21/24 History New Prescriptions to Start Prescriptions: Allergies Allergy/AdvReac Type Severity Reaction Status Date / Time morphine Allergy Mild Nausea/Vomi Verified 07/21/24 10:54 ting pregabalin (From Lyrica) AdvReac itching Verified 07/21/24 10:54 Exam Data for Last 24 hours Vital signs and Labs for Last 24 Hours: Temp Pulse BP Pulse Ox O2 Del Method 97.1 F L 66 147/80 H 98 Room Air 07/21/24 11:01 07/21/24 11:01 07/21/24 11:01 07/21/24 11:01 07/21/24 11:01 I & O for Last 24 hours: Intake & Output 07/18/24 07/19/24 07/20/24 07/21/24 23:59 23:59 23:59 23:59 Weight 250 lb *Routine HEENT Exam Head: Present normocephalic Eye: Present EOMI and PERRL ENT: Present mucous membranes moist *Routine Neck Exam Neck: Present supple *Routine Respiratory Exam Respiratory: Present CTA bilaterally *Routine Cardiovascular Exam Cardiovascular: Present RRR *Routine Abdominal Exam Abdominal: Present soft and normoactive bowel sounds; Absent tenderness *Routine Rectal Exam Rectal:: deferred *Routine Genitalia Exam Genitalia:: deferred *Routine Extremities Exam Extremities: Absent cyanosis, clubbing or edema *Routine Skin Exam Skin: Present warm; Absent rash *Routine Neurological Exam Neurological: Present alert and oriented X3 Assessment and Plan *Assessment and plan (1) Lower abdominal pain: Status: Acute Category: Medical Code(s): R10.30 - Lower abdominal pain, unspecified (2) Bloating: Status: Acute Category: Medical Code(s): R14.0 - Abdominal distension (gaseous) (3) Bright red blood per rectum: Status: Acute Category: Medical Code(s): K62.5 - Hemorrhage of anus and rectum (4) Irregular bowel habits: Status: Acute Category: Medical Code(s): R19.8 - Other specified symptoms and signs involving the digestive system and abdomen (5) Family history of colorectal cancer: Status: Chronic Category: Medical Code(s): Z80.0 - Family history of malignant neoplasm of digestive organs Plan A/P: 1. Lower abdominal pain with bloating, bowel irregularity and bright red blood per rectum is the preprocedural diagnosis. The patient does have a sister with colon cancer in her 50s. The patient will be anesthetized/sedated using MAC sedation. The patient has been seen and examined. Cardiac and lung assessment prior to the examination is stable. Proceed with planned diagnostic colonoscopy.
--- NOTE | 2024-07-21 11:41 | P.PCN_ITS ---
[facility] Procedure Note Date: 07/21/24 Time: 12:18 Procedure Note:: Colonoscopy Procedure Report: Colonoscopy with cold snare polypectomy and monopolar ablation/coagulation of internal hemorrhoids Endoscopist: Villa Aleman II, MD Referring physician: Shreya CRUZ Date of Procedure: July 21, 2024 Equipment: Olympus 190 variable stiffness pediatric colonoscope Sedation: MAC sedation Indication: Mrs. Francisco is a 48-year-old female who reports chronic persistent lower abdominal pain and sometimes severe cramps. She does report some bowel irregularity with soft stools and incomplete defecation with excessive wiping. She has noted more frequent bright red rectal bleeding. She has had a lot of bloating and gassiness. The patient does state that her older sister had colon cancer in her 50s. The patient has never had a colonoscopy. She reports no unintentional weight loss. Procedure: Prior to the procedure, a history and physical exam was performed, and patient's medications and allergies were reviewed. The risks, benefits and alternatives of the sedation and procedure were discussed with the patient. All questions were answered and informed consent was obtained. The patient was brought to the procedure room. Patient identification and proposed procedure were verified by the physician and the nurse. The patient was placed in a left lateral decubitus position and the scope was passed under direct vision. Throughout the procedure, the patient's blood pressure, pulse, and oxygen saturations were monitored continuously. The colonoscopy was accomplished without difficulty. The patient tolerated the procedure well. Findings: On digital rectal examination there was normal rectal tone. There were no external hemorrhoids. The colonoscope was introduced through the anal canal to the rectum and advanced to the cecum. The ileocecal valve and appendiceal orifice were identified. The scope was advanced a short distance into the ileum which appeared grossly normal. The scope was then withdrawn into the colon. The cecum, ascending and transverse colon and mucosa were grossly normal. There were scattered diverticuli throughout the descending and sigmoid colon (LEFT colon). There were 2 polyps (5 mm) in the sigmoid colon that were removed via cold snare polypectomy. The rectum itself was normal. Upon retroflexion within the rectum there were grade 2 internal hemorrhoids. The columns of hemorrhoids were ablated/coagulated to destruction. The preparation was excellent throughout with [place] Preparation Score of 9. The cecal time was 14 minutes. Impression: 1. Diminutive sigmoid polyps x 2?probable hyperplastic polyps 2. Left-sided diverticulosis 3. Grade 2 internal hemorrhoids status post monopolar ablation/coagulation Plan: I will follow-up the polyp histology. Based upon the patient's family history, I would recommend repeat surveillance colonoscopy again in 5 years. I would encourage psyllium bulking fiber supplementation on a maintenance basis. I do feel that she has functional abdominal pain and spastic diverticular di sease. We will discuss dietary measures and treatment options.
[2024-07-21] MEDS: LACTATED RINGERS 1000ML 1,000 ML 25 ML IV (11:42)
--- NOTE | 2024-07-21 11:43 | P.PNANES_ITS ---
[facility] Disclaimer: The information contained in this section may have been updated after the patient was seen, as this information can be updated by other users. Medical History (Updated 07/21/24 @ 11:40 by Villa Aleman II, MD) Asthma Migraine History of cyst of breast Breast cancer Family history of uterine cancer Family history of breast cancer Family history of colorectal cancer Tobacco use Fatigue Surgical History History of section History of hysterectomy Family History (Updated 07/21/24 @ 11:07 by Shani Frias RN) Other Bone cancer Breast cancer Colon cancer Heart disease Lung cancer Throat cancer Vaginal cancer Social History (Updated 07/21/24 @ 11:08 by Shani Frias RN) Smoking Status: Current every day smoker tobacco type: cigarettes packs per day: 1 second hand exposure: Yes alcohol intake: never substance use type: denies use current occupational status: employed Travel in the last 8 weeks?: None household members: other housing: house 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 current occupational exposures/hazards: No caffeine: Yes Have you lived/traveled outside US in past 30 days?: No Contact w/someone who lives/traveled outside US past 30 days?: No Exposure to someone with infectious disease in past 14 days?: No Do you have a fever (greater than 100.4 F or 38 C)?: No Have you tested positive for COVID-19?: No Exposed to someone with COVID-19 in past 14 days?: No Do you have a sore throat?: No Do you have a cough?: No Do you have any weakness?: No Do you have any diarrhea?: No Are you experiencing any unusual bleeding?: No Do you have any muscle aches/pain?: No Do you have any abdominal pain?: No Are you experiencing loss of taste or smell?: No [facility] Anesthesia Checklist Patient Identification Patient Identification: Arm Band Structural Data Admitted From: Home Planned Operative Procedure/s: Colonoscopy Consent for Planned Operative Procedure(s) Verified: Yes Verified Documents: Surgical Consent and History and Physical NPO Status Verified Time NPO: 00:00 Additional verifications Anesthesia Reactions: No Hx Blood Transfusions: No Blood Transfusion Reaction: No Airway Assessment Mallampati Score:: Class II C-Spine Mobility Assessed: Yes TMJ Mobility Assessed: Yes Dentition: Good Dentition Neurological Assessment Level of Consciousness: Awake, Alert and Appropriate Anesthesia Plan Anesthesia Risk discussed: Yes Anesthesia Plan: Verified ASA Class: III Anesthesia Type: MAC
[2024-07-21 12:23] VITALS: BP 155/95; PULSE 91; RESP 18; TEMP 36.3; O2SAT 98
[2024-07-21 12:33] VITALS: BP 134/69; PULSE 76; RESP 16; O2SAT 98
[2024-07-21 12:42] VITALS: BP 121/81; PULSE 71; RESP 18; O2SAT 99
[2024-07-21 12:53] VITALS: BP 131/78; PULSE 72; RESP 18; O2SAT 99
== END 2024-07-21 12:56 | disposition home or self-care (01) ==
PROVIDERS: PCP Nurse Practitioner; Visit Provider Internal Medicine Gastroenterology
PROC: 0DJD8ZZ Inspection of Lower Intestinal Tract, Via Natural or Artificial Opening Endoscopic (ICD-10-PCS; CPT 45378; principal; 2024-07-21 11:30)
DX: K63.5 Polyp of colon (principal); K57.30 Diverticulosis of large intestine without perforation or abscess without bleeding; K64.1 Second degree hemorrhoids; R10.30 Lower abdominal pain, unspecified; K62.5 Hemorrhage of anus and rectum; R14.0 Abdominal distension (gaseous); R19.8 Other specified symptoms and signs involving the digestive system and abdomen; J45.909 Unspecified asthma, uncomplicated; F17.210 Nicotine dependence, cigarettes, uncomplicated; Z80.0 Family history of malignant neoplasm of digestive organs; Z88.8 Allergy status to other drugs, medicaments and biological substances; Z88.5 Allergy status to narcotic agent; Z79.899 Other long term (current) drug therapy; Z79.51 Long term (current) use of inhaled steroids; Z85.3 Personal history of malignant neoplasm of breast
CPT/HCPCS: 45385; 45388; J7120

== ENCOUNTER 2025-02-01 12:41 | Outpatient (CLI) | payer BC, SELFPAY ==
--- NOTE | 2025-02-01 12:43 | US_ITS ---
FINAL REPORT TECHNIQUE: Ultrasound images of the kidneys and bladder were obtained. CLINICAL HISTORY: DISORDER OF KIDNEY AND URETER COMPARISON: CT dated 01/08/2024 FINDINGS: The right kidney measures 8.8 cm in length. It is normal in echogenicity. There is no hydronephrosis. The left kidney measures 10.7 cm in length. It is normal in echogenicity. There is no hydronephrosis. There may be a hypoechoic focus in the left kidney centrally measuring 1.7 cm. There is no sonographic abnormality corresponding to the 6 mm nodule seen on the prior CT. Exam is limited by patient's body habitus. IMPRESSION: No sonographic abnormality is seen to correspond with the 6 mm nodule noted on prior CT. If reevaluation is desired, recommend CT. Reviewed, Interpreted and Dictated by Edu Scott MD Transcribed by Radha Randall Authenticated and [facility]
== END 2025-02-01 23:59 | disposition home or self-care (01) ==
LOC: RAD 12:42
PROVIDERS: PCP Nurse Practitioner; Visit Provider Urology
DX: N28.89 Other specified disorders of kidney and ureter (principal)
CPT/HCPCS: 76770